=== PATIENT | male | born 1950 | race Caucasian/White ===

== ENCOUNTER 2021-08-02 03:42 | Inpatient (IN) | payer MEDICARE, OTHER ==
[~2021-08-02] VITALS: Ht 180 cm; Wt 87.2 kg
--- NOTE | 2021-08-02 04:40 | ED Cardiac General ---
History of Present Illness General Stated Complaint: CONGESTION,WEAK,NOT EATING OR DRINKING,COUGH Source: patient, family (sister and DARYN) Exam Limitations: no limitations History of Present Illness Date Seen by Provider: Aug 02, 2021 Time Seen by Provider: 04:26 Initial Comments Patient is a particularly poor historian but states for the past couple days he has had shortness of air cough productive of clear sputum and malaise weakness poor appetite. He also had an episode of loose watery stool today. He has had nausea but no vomiting. He said his roommate also has had some diarrhea for the past day or so. He says he has a known history of hypertension and atrial fibrillation but does not know what medications he takes. He recently switched to Cvent and had some medications changed but he does not know them either. He is not having chest pain or belly pain. No surgeries on his belly. No fevers or chills. He has not tried taking any medications for his symptoms. Patient sister gives a history that open ~6 months ago he was not following with a doctor and now he is on losartan, 25 mg metoprolol succinate and 325 mg aspirin. He is not on any blood thinners. He has a known history of atrial fibrillation and hypertension. Allergies and Home Medications Allergies Coded Allergies: No Known Drug Allergies (Unverified , 08/02/21) Patient Home Medication List Home Medication List Reviewed: Yes Aspirin (Aspirin EC) 325 Mg Tablet.dr, 325 MG PO DAILY, (Reported) Entered as Reported by: MELY NIELSON on 08/02/211507 Last Action: Reviewed Losartan Potassium (Losartan Potassium) 25 Mg Tablet, 25 MG PO DAILY, (Reported) Entered as Reported by: MELY NIELSON on 08/02/211507 Last Action: Reviewed Metoprolol Succinate (Metoprolol Succinate) 25 Mg Tab.er.24h, 25 MG PO DAILY, (Reported) Entered as Reported by: MELY NIELSON on 08/02/211507 Last Action: Reviewed Review of Systems Review of Systems Constitutional: No chills, No diaphoresis EENTM: No Blurred Vision, No Double Vision Respiratory: Denies Cough, Denies Shortness of Air Cardiovascular: Denies Chest Pain, Denies Lightheadedness Gastrointestinal: Denies Abdominal Pain, Denies Constipated, Denies Diarrhea, Denies Nausea Genitourinary: Denies Burning, Denies Discharge Musculoskeletal: No back pain, No muscle pain Skin: No change in color, No rash Psychiatric/Neurological: Denies Anxiety, Denies Depressed All Other Systems Reviewed Negative Unless Noted: Yes Past Zkdzilm-Pnksey-Hqkfgp Hx Patient Social History Tobacco Use?: No Use of E-Cig and/or Vaping dev: No Substance use?: No Alcohol Use?: No Physical Exam Vital Signs Vital Signs - First Documented 08/02/21 08/02/21 04:27 05:07 Temp 37.5 Pulse 102 Resp 18 B/P (MAP) 152/110 (124) Pulse Ox 93 O2 Delivery Room Air O2 Flow Rate 2.00 Capillary Refill : Height, Weight, BMI Height: '" Weight: lbs. oz. kg; BMI Method: General Appearance: WD/WN, Moderate Distress HEENT: PERRL/EOMI; No Moist Mucous Membranes Neck: Full Range of Motion, Normal Inspection Respiratory: Lungs Clear, Normal Breath Sounds, No Accessory Muscle Use, No Respiratory Distress Cardiovascular: Regular Rate, Rhythm, No Edema, Normal Peripheral Pulses Gastrointestinal: Normal Bowel Sounds, Non Tender, Soft Extremity: Normal Capillary Refill, Normal Inspection, No Pedal Edema Neurologic/Psychiatric: Alert, Oriented x3, No Motor/Sensory Deficits, Normal Mood/Affect Skin: Normal Color, Warm/Dry Progress/Results/Core Measures Results/Orders Lab Results Laboratory Tests Test 08/02/21 04:35 08/02/21 04:50 08/02/21 05:15 Range/Units Influenza Type A (RT-PCR) Not Detected Not Detecte Influenza Type B (RT-PCR) Not Detected Not Detecte SARS-CoV-2 RNA (RT-PCR) Detected H Not Detecte White Blood Count 4.7 4.3-11.0 10^3/uL Red Blood Count 6.47 H 4.30-5.52 10^6/uL Hemoglobin 18.5 H 13.3-17.7 g/dL Hematocrit 58 H 40-54 % Mean Corpuscular Volume 89 80-99 fL Mean Corpuscular Hemoglobin 29 25-34 pg Mean Corpuscular Hemoglobin Concent 32 32-36 g/dL Red Cell Distribution Width 14.6 H 10.0-14.5 % Platelet Count 158 130-400 10^3/uL Mean Platelet Volume 10.8 9.0-12.2 fL Immature Granulocyte % (Auto) 0 % Neutrophils (%) (Auto) 72 42-75 % Lymphocytes (%) (Auto) 19 12-44 % Monocytes (%) (Auto) 8 0-12 % Eosinophils (%) (Auto) 0 0-10 % Basophils (%) (Auto) 0 0-10 % Neutrophils # (Auto) 3.4 1.8-7.8 10^3/uL Lymphocytes # (Auto) 0.9 L 1.0-4.0 10^3/uL Monocytes # (Auto) 0.4 0.0-1.0 10^3/uL Eosinophils # (Auto) 0.0 0.0-0.3 10^3/uL Basophils # (Auto) 0.0 0.0-0.1 10^3/uL Immature Granulocyte # (Auto) 0.0 0.0-0.1 10^3/uL D-Dimer 1.28 H 0.00-0.49 UG/ML Sodium Level 134 L 135-145 MMOL/L Potassium Level 4.4 3.6-5.0 MMOL/L Chloride Level 98 98-107 MMOL/L Carbon Dioxide Level 21 21-32 MMOL/L Anion Gap 15 H 5-14 MMOL/L Blood Urea Nitrogen 37 H 7-18 MG/DL Creatinine 1.50 H 0.60-1.30 MG/DL Estimat Glomerular Filtration Rate 46 BUN/Creatinine Ratio 25 Glucose Level 151 H 70-105 MG/DL Calcium Level 8.6 8.5-10.1 MG/DL Corrected Calcium 8.8 8.5-10.1 MG/DL Magnesium Level 2.4 1.6-2.4 MG/DL Total Bilirubin 0.8 0.1-1.0 MG/DL Aspartate Amino Transf (AST/SGOT) 48 H 5-34 U/L Alanine Aminotransferase (ALT/SGPT) 18 0-55 U/L Alkaline Phosphatase 43 40-136 U/L Troponin I 0.028 <0.028 NG/ML C-Reactive Protein High Sensitivity 2.39 H 0.00-0.50 MG/DL Total Protein 8.1 6.4-8.2 GM/DL Albumin 3.7 3.2-4.5 GM/DL Procalcitonin 0.23 H <0.10 NG/ML Blood Gas Puncture Site RIGHT RADIAL Blood Gas Patient Temperature 99.5 Arterial Blood pH 7.36 L 7.37-7.43 Arterial Blood Partial Pressure CO2 40 35-45 MMHG Arterial Blood Partial Pressure O2 74 L 79-93 MMHG Arterial Blood HCO3 22 L 23-27 MMOL/L Arterial Blood Total CO2 22.7 21.0-31.0 MMOL/L Arterial Blood Oxygen Saturation 94 94-100 % Arterial Blood Base Excess -3.0 L -2.5-2.5 MMOL/L Gianluca Test YES-POS Blood Gas Ventilator Setting NO Blood Gas Inspired Oxygen 2L My Orders Orders - LIZZTEH GREWAL Continuous Ekg Monitoring (08/02/21 04:36) Ekg Tracing (08/02/21 04:36) Troponin I Samantha (08/02/21 04:36) Chest 1 View, Ap/Pa Only (08/02/21 04:36) Covid 19 Inhouse Test (08/02/21 04:36) Influenza A And B By Pcr (08/02/21 04:36) Cbc With Automated Diff (08/02/21 04:36) Comprehensive Metabolic Panel (08/02/21 04:36) Hs C Reactive Protein (08/02/21 04:36) Ed Iv/Invasive Line Start (08/02/21 04:37) Lactated Ringers (Lr 1000 Ml Iv Solution (08/02/21 04:45) Magnesium (08/02/21 04:37) Diltiazem Injection (Cardizem Injection) (08/02/21 04:45) Diltiazem Drip Pre-Mix (Cardizem Drip Pr (08/02/21 04:45) Ondansetron Injection (Zofran Injectio (08/02/21 04:45) Apixaban Tablet (Eliquis Tablet) (08/02/21 05:00) Ua Culture If Indicated (08/02/21 05:04) O2 (08/02/21 05:06) Arterial Blood Gas (08/02/21 05:18) Medications Given in ED Vital Signs/I&O 08/02/21 08/02/21 04:27 05:07 Temp 37.5 Pulse 102 Resp 18 B/P (MAP) 152/110 (124) Pulse Ox 93 O2 Delivery Room Air Nasal Cannula O2 Flow Rate 2.00 Progress Progress Note #1: Time: 04:50 Progress Note Patient is in atrial fibrillation with rapid ventricular response. He has a decent blood pressure of 150/110 so we will give him 20 mg of Cardizem IV followed by Cardizem drip in addition to his metoprolol and losartan. Because of his episode of loose stool today we will also swab him for Covid and influenza and get a chest x-ray for his cough and check some basic labs. He is afebrile. Other than the tachycardia has aseptic vital signs. Belly is soft nontender nonsurgical. Lungs are clear. After discussing risks, benefits and alternatives we will start him on Eliquis. [id number] score of 2 points. Progress Note #2: Time: 05:26 Progress Note ABG demonstrates metabolic acidosis with mild to moderate hypoxemia on 2 L by nasal cannula. Initial ECG Impression Date: Aug 02, 2021 Initial ECG Impression Time: 04:38 Initial ECG Rate: 123 Initial ECG Rhythm: Normal Sinus Initial ECG Intervals: Normal Initial ECG Impression: Atrial Fibrillation w/RVR Comment Atrial fibrillation with a rapid ventricular response. Diagnostic Imaging Diagonstic Imaging: Xray Plain Films/CT/US/NM/MRI: chest Comments [facility] [place], [place] NAME: ANNA AGUILAR [facility] REC#: [id number] PT STATUS: ADM Liz : 1950 PHYSICIAN: LIZZETH GREWAL MD ADMIT DATE: 08/02/21/[facility] Signed Date of Exam:08/02/21 CHEST 1 VIEW, AP/PA ONLY INDICATION: Cough, shortness of breath COMPARISON: None available. TECHNIQUE: Single frontal radiograph of the chest dated 08/02/2021 FINDINGS: The cardiac silhouette is enlarged. No significant pulmonary vascular congestion. Extensive opacities are seen throughout the left lung with additional right basilar pulmonary opacities present. No significant pleural effusion. No pneumothorax. No acute osseous abnormality. IMPRESSION: Left greater than right pulmonary opacities concerning for infection. Radiographic follow-up after appropriate therapy is recommended. Cardiomegaly. Dictated by: Dictated on workstation # [id number] Dict: 08/02/21 0600 Trans: 08/02/21 0843 AMPARO [id number] Interpreted by: JUDE SILVA MD Electronically signed by: JUDE SILVA MD 08/02/21 0843 Reviewed: Reviewed by Me Departure Communication (Admissions) Time/Spoke to Admitting Phy: 05:50 Discussed the case with Dr. Yarbrough and he agrees with cardiac consultation and Jesusita salcedo Time/Spoke to Consulting Phy: 05:47 Discussed the case with Dr. Monge and he agrees to consult on the case for cardiology. Impression Primary Impression: Atrial fibrillation with rapid ventricular response Additional Impressions: COVID-19 Acute hypoxemic respiratory failure due to COVID-19 Disposition: ADMITTED INPATIENT Condition: Stable Admissions Decision to Admit Reason: Admit from ER (General) Decision to Admit/Date: Aug 02, 2021 Time/Decision to Admit Time: 05:34 Departure-Patient Inst. Referrals: KENIA AVENDANO MD (PCP/Family) Primary Care Physician LIZZETH GREWAL Aug 02, 2021 04:40
[2021-08-02] MEDS ORDERED: ONDANSETRON 4 MG/2 ML (SDV) Z0FRAN IVP ONE (04:45)
[2021-08-02] MEDS ORDERED: LACTATED RINGERS 1,000 ML IV ONE (04:45)
[2021-08-02] MEDS ORDERED: APIXABAN 5 MG (ELIQUIS) TABLET PO ONE (05:00)
[2021-08-02] MEDS: dilTIAZem DRIP PRE-MIX 125 ML IV SCH (05:03)
[2021-08-02 05:11] LABS: BASOPHILS % (AUTO) 0 % (0-10); EOSINOPHILS % (AUTO) 0 % (0-10); HEMATOCRIT 58 % (40-54); HEMOGLOBIN 18.5 g/dL (13.3-17.7); LYMPHOCYTES # (AUTO) 0.9 10^3/uL (1.0-4.0); LYMPHOCYTES % (AUTO) 19 % (12-44); MEAN CORPUSCULAR HEMOGLOBIN 29 pg (25-34); MEAN CORPUSCULAR HGB CONC 32 g/dL (32-36); MEAN CORPUSCULAR VOLUME 89 fL (80-99); MEAN PLATELET VOLUME 10.8 fL (9.0-12.2); MONOCYTES # (AUTO) 0.4 10^3/uL (0.0-1.0); MONOCYTES % (AUTO) 8 % (0-12); NEUTROPHILS # (AUTO) 3.4 10^3/uL (1.8-7.8); NEUTROPHILS % (AUTO) 72 % (42-75); PLATELET COUNT 158 10^3/uL (130-400); WHITE BLOOD COUNT 4.7 10^3/uL (4.3-11.0)
[2021-08-02 05:21] LABS: ALBUMIN 3.7 GM/DL (3.2-4.5); POTASSIUM 4.4 MMOL/L (3.6-5.0)
[2021-08-02 05:22] LABS: CALCIUM 8.6 MG/DL (8.5-10.1)
[2021-08-02 05:23] LABS: ABG OXYGEN SATURATION 94 % (94-100); ABG PCO2 40 MMHG (35-45); ABG PH 7.36 (7.37-7.43); ABG PO2 74 MMHG (79-93); ABG TCO2 22.7 MMOL/L (21.0-31.0)
[2021-08-02 05:24] LABS: ALLENS TEST YES-POS; INSPIRED O2 2L; PATIENT TEMP 99.5; VENTILATOR NO
[2021-08-02 05:24] LABS: TOTAL PROTEIN 8.1 GM/DL (6.4-8.2)
[2021-08-02 05:25] LABS: BILIRUBIN,TOTAL 0.8 MG/DL (0.1-1.0)
[2021-08-02 05:27] LABS: CREATININE SERUM 1.5 MG/DL (0.60-1.30)
[2021-08-02 05:30] LABS: MAGNESIUM 2.4 MG/DL (1.6-2.4)
--- NOTE | 2021-08-02 06:03 | Diagnostic Imaging Report ---
INDICATION: Cough, shortness of breath COMPARISON: None available. TECHNIQUE: Single frontal radiograph of the chest dated 08/02/2021 FINDINGS: The cardiac silhouette is enlarged. No significant pulmonary vascular congestion. Extensive opacities are seen throughout the left lung with additional right basilar pulmonary opacities present. No significant pleural effusion. No pneumothorax. No acute osseous abnormality. IMPRESSION: Left greater than right pulmonary opacities concerning for infection. Radiographic follow-up after appropriate therapy is recommended. Cardiomegaly. Dictated by: Dictated on workstation # [id number]
[2021-08-02] MEDS ORDERED: ACETAMINOPHEN 325 MG TABLET PO PRN (08:15)
[2021-08-02] MEDS ORDERED: ONDANSETRON 4 MG/2 ML (SDV) Z0FRAN IVP PRN (08:15)
[2021-08-02] MEDS: LACTATED RINGERS 1,000 ML IV SCH ×2 (08:41→18:12)
[2021-08-02] MEDS: APIXABAN 5 MG (ELIQUIS) TABLET PO SCH ×2 (08:42→21:43)
[2021-08-02] MEDS ORDERED: MTP25TSR PO (15:08)
[2021-08-02] MEDS ORDERED: LOSA25TA41 PO (15:08)
[2021-08-02] MEDS ORDERED: ASPI325T32 PO (15:08)
--- NOTE | 2021-08-02 16:25 | Consultation-Cardiology ---
HPI-Cardiology Cardiology Consultation: Date of Consultation 08/02/21 Time Seen by a Provider: 16:00 Date of Admission Attending Physician Vinh Yarbrough MD Admitting Physician Jose G Sandy MD Consulting Physician DENIA PARMAR MD, MA, FACP, FACC, [facility], [facility] Physician requesting consult: Dr Hardy HPI: Chief Complaint: Shortness of breath, weakness 70 yo man admitted to the Hospitalist Service (Dr Hardy) on 08/01/21 for increasing shortness of breath and gen malaise. No cp or palp or syncope. Does report a h/o A Fib diagnosed 6 mo ago by his pcp. Denies focal weakness. Denies n/v/d. Review of Systems-Cardiology Review of Systems Constitutional: As described under HPI Eyes: No vision change Ears/Nose/Throat: No ear discharge, No nasal drainage, No recent hearing loss Respiratory: As described under HPI Cardiovascular: As described under HPI Gastrointestinal: No constipation, No diarrhea, No nausea, No vomiting Genitourinary: No dysuria, No hematuria, No urine frequency changes Musculoskeletal: No back pain, No joint pain Skin: No rash, No ulcerations Psychiatric/Neurological: No seizure, No focal weakness, No syncope Hematologic: No bleeding abnormalities All Other Systems Reviewed Negative Unless Noted: Yes EIL-Ylmven-Ytpofz Hx Patient Social History Alcohol Use?: No Past Medical History PMH As described under Assessment. Family Medical History Family Medical History: He does not report any fam h/o early CAD or SCD Allergies and Home Medications Allergies Coded Allergies: No Known Drug Allergies (Unverified , 08/02/21) Patient Home Medication List Home Medication List Reviewed: Yes Aspirin (Aspirin EC) 325 Mg Tablet.dr, 325 MG PO DAILY, (Reported) Entered as Reported by: MELY NIELSON on 08/02/211507 Last Action: Reviewed Losartan Potassium (Losartan Potassium) 25 Mg Tablet, 25 MG PO DAILY, (Reported) Entered as Reported by: MELY NIELSON on 08/02/211507 Last Action: Reviewed Metoprolol Succinate (Metoprolol Succinate) 25 Mg Tab.er.24h, 25 MG PO DAILY, (Reported) Entered as Reported by: MELY NIELSON on 08/02/21 150 Last Action: Reviewed Physical Exam-Cardiology Physical Exam Vital Signs/I&O 08/02/21 08/02/21 08/02/2108/02/21 04:27 05:07 06:53 07:17 Temp 37.5 37.5 Pulse 102 74 Resp 18 16 B/P (MAP) 152/110 (124) 110/88 Pulse Ox 93 95 O2 Delivery Room Air Nasal Cannula Nasal Cannula NIV Bilevel O2 Flow Rate 2.00 2.00 FiO2 70 08/02/21 08/02/21 08/02/21 08/02/21 07:51 08:30 11:17 12:15 Temp 36.4 35.9 Pulse 97 93 82 Resp 15 14 B/P (MAP) 151/96 129/86 Pulse Ox 94 O2 Delivery Room Air NIV Bilevel Room Air FiO2 70 08/02/21 08/02/21 08/02/21 08/02/21 12:26 12:28 15:17 15:57 Temp 35.9 37.1 Pulse 82 76 83 Resp 14 21 B/P (MAP) 129/86 139/89 Pulse Ox 94 90 O2 Delivery Room Air NIV Bilevel Room Air FiO2 70 Capillary Refill : Less Than 3 Seconds Constitutional: well-developed, well-nourished HEENT: PERRL, EOMI, hearing is well preserved Neck: carotid pulses are 2 + bilaterally, with good upstrokes Respiratory: No accessory muscle use; other (fair to good, bilateral air entry) Cardiovascular: irregularly irregular, S1 and S2, systolic murmur (soft CAMMIE at card base) Gastrointestinal: No tender; soft; No guarding, No rebound; audible bowel sounds Extremities: No clubbing, No cyanosis, No significant edema Neurologic/Psychiatric: oriented x 3, other (moves all limbs equally) Skin: No rash, No ulcerations Data Review Labs Laboratory Tests 08/02/21 04:35: Influenza Type A (RT-PCR) Not Detected, Influenza Type B (RT-PCR) Not Detected, SARS-CoV-2 RNA (RT-PCR) DetectedH 08/02/21 04:50: White Blood Count 4.7, Red Blood Count 6.47H, Hemoglobin 18.5H, Hematocrit 58H, Mean Corpuscular Volume 89, Mean Corpuscular Hemoglobin 29, Mean Corpuscular Hemoglobin Concent 32, Red Cell Distribution Width 14.6H, Platelet Count 158, Mean Platelet Volume 10.8, Immature Granulocyte % (Auto) 0, Neutrophils (%) (Auto) 72, Lymphocytes (%) (Auto) 19, Monocytes (%) (Auto) 8, Eosinophils (%) (Auto) 0, Basophils (%) (Auto) 0, Neutrophils # (Auto) 3.4, Lymphocytes # (Auto) 0.9L, Monocytes # (Auto) 0.4, Eosinophils # (Auto) 0.0, Basophils # (Auto) 0.0, Immature Granulocyte # (Auto) 0.0, D-Dimer 1.28H, Sodium Level 134L, Potassium Level 4.4, Chloride Level 98, Carbon Dioxide Level 21, Anion Gap 15H, Blood Urea Nitrogen 37H, Creatinine 1.50H, Estimat Glomerular Filtration Rate 46, BUN/Creatinine Ratio 25, Glucose Level 151H, Calcium Level 8.6, Corrected Calcium 8.8, Magnesium Level 2.4, Total Bilirubin 0.8, Aspartate Amino Transf (AST/SGOT) 48H, Alanine Aminotransferase (ALT/SGPT) 18, Alkaline Phosphatase 43, Troponin I 0.028, C-Reactive Protein High Sensitivity 2.39H, Total Protein 8.1, Albumin 3.7, Procalcitonin 0.23H 08/02/21 05:15: Blood Gas Puncture Site RIGHT RADIAL, Blood Gas Patient Temperature 99.5, Arterial Blood pH 7.36L, Arterial Blood Partial Pressure CO2 40, Arterial Blood Partial Pressure O2 74L, Arterial Blood HCO3 22L, Arterial Blood Total CO2 22.7, Arterial Blood Oxygen Saturation 94, Arterial Blood Base Excess -3.0L, Gianluca Test YES-POS, Blood Gas Ventilator Setting NO, Blood Gas Inspired Oxygen 2L 08/02/21 09:00: Laboratory Tests 08/02/21 04:50 A/P-Cardiology Assessment/Admission Diagnosis A Fib, 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 Change to oral tomorrow * Eliquis for stroke prophylaxis * Management of COVID-19, hypoxia, resp failure and polycythemia is with the Hospitalist Svce (Dr Hardy) * Monitor labs * Ok for d/c tomorrow from cardiac standpoint if heart rate controlled on oral long-acting diltiazem. Continue apixaban for stroke prophylaxis * Cardiology f/u 1-2 weeks after discharge DENIA PARMAR MD FACP [facility] Aug 02, 2021 16:25
--- NOTE | 2021-08-02 18:11 | History & Physical-Hospitalist ---
History of Present Illness HPI/Chief Complaint Emmanuel Sanches is a 70 year old male with PMH HTN, AFib, who presented with shortness of breath. He has also had a cough. He denies fevers and chills. He has been having diarrhea. He denies nausea and vomiting. He is not vaccinated against COVID-19. Source: patient Exam Limitations: no limitations Date Seen 08/02/21 Time Seen by a Provider: 09:50 Attending Physician Vinh Yarbrough MD PCP Jose G Sandy MD Referring Physician Date of Admission Aug 02, 2021 at 10:50 Home Medications & Allergies Home Medications Reviewed patient Home Medication Reconciliation performed by pharmacy medication reconciliations electrocardiographic technician and/or nursing. Patients Allergies have been reviewed. Allergies Allergies Coded Allergies No Known Drug Allergies (Vdzdtfukeb18/3/21) Past Hlyckyv-Vhsnkm-Baixqv Hx Patient Social History Tobacco Use?: No Use of E-Cig and/or Vaping dev: No Substance use?: No Alcohol Use?: No Current Status Communicates: Verbally Primary Language: Mongolian Preferred Spoken Language: Mongolian Is interpretation needed?: No Past Medical History Atrial Fibrillation, Hypertension Family Medical History No Pertinent Family Hx Review of Systems Constitutional: malaise EENTM: no symptoms reported Respiratory: cough, short of breath Cardiovascular: no symptoms reported Gastrointestinal: diarrhea Genitourinary: no symptoms reported Musculoskeletal: no symptoms reported Skin: no symptoms reported Psychiatric/Neurological: No Symptoms Reported Physical Exam Physical Exam Vital Signs Vital Signs - First Documented 08/02/21 08/02/21 08/02/21 04:27 05:07 07:17 Temp 37.5 Pulse 102 Resp 18 B/P (MAP) 152/110 (124) Pulse Ox 93 O2 Delivery Room Air O2 Flow Rate 2.00 FiO2 70 Capillary Refill : Less Than 3 Seconds Height, Weight, BMI Height: '" Weight: lbs. oz. kg; 25.00 BMI Method: General Appearance: No Apparent Distress, WD/WN HEENT: PERRL/EOMI, Pharynx Normal Neck: Normal Inspection, Supple Respiratory: Lungs Clear, Normal Breath Sounds, No Respiratory Distress Cardiovascular: No Edema, No Murmur, Irregularly Irregular Gastrointestinal: Normal Bowel Sounds, Non Tender, Soft Extremity: Normal Inspection, Non Tender, No Pedal Edema Neurologic/Psychiatric: Alert, Oriented x3, No Motor/Sensory Deficits Skin: Normal Color, Warm/Dry Results Results/Procedures Labs Laboratory Tests 08/02/21 04:50 Patient resulted labs reviewed. Imaging: Reviewed Imaging Report Assessment/Plan Admission Diagnosis Atrial fibrillation with rapid ventricular response Admission Status: Inpatient Order (span 2 midnights) Reason for Inpatient Admission: Respiratory failure due to COVID-19 Assessment and Plan AFib with RVR Cardiology consulted IV Cardizem Eliquis Acute respiratory failure due to COVID-19 Elevated d-dimer Unvaccinated Requiring minimal supplemental oxygen Started on Decadron D-dimer mildly elevated Already receiving therapeutic anticoagulation with Eliquis Procal normal, no antibiotics MARITA vs CKD Polycythemia Cr elevated, unclear baseline Hgb increased, possibly due to dehydration IV fluids DVT prophylaxis: already receiving therapeutic anticoagulation Diagnosis/Problems Diagnosis/Problems (1) Atrial fibrillation with RVR Status: Acute (2) Acute respiratory failure with hypoxia Status: Acute (3) COVID-19 Status: Acute (4) Elevated d-dimer Status: Acute (5) MARITA (acute kidney injury) Status: Acute (6) Polycythemia Status: Acute TUCKER GALLEGOS MD Aug 02, 2021 18:11
[2021-08-03] MEDS: LACTATED RINGERS 1,000 ML IV SCH ×3 (02:12→21:16)
[2021-08-03] MEDS: dilTIAZem DRIP PRE-MIX 125 ML IV SCH (02:12)
[2021-08-03 05:56] LABS: EOSINOPHILS % (AUTO) 0 % (0-10)
[2021-08-03 05:58] LABS: BASOPHILS % (AUTO) 0 % (0-10); HEMATOCRIT 50 % (40-54); HEMOGLOBIN 16.4 g/dL (13.3-17.7); LYMPHOCYTES # (AUTO) 0.8 10^3/uL (1.0-4.0); LYMPHOCYTES % (AUTO) 27 % (12-44); MEAN CORPUSCULAR HEMOGLOBIN 29 pg (25-34); MEAN CORPUSCULAR HGB CONC 33 g/dL (32-36); MEAN CORPUSCULAR VOLUME 88 fL (80-99); MEAN PLATELET VOLUME 10.6 fL (9.0-12.2); MONOCYTES # (AUTO) 0.4 10^3/uL (0.0-1.0); MONOCYTES % (AUTO) 13 % (0-12); NEUTROPHILS # (AUTO) 1.9 10^3/uL (1.8-7.8); NEUTROPHILS % (AUTO) 60 % (42-75); PLATELET COUNT 120 10^3/uL (130-400); WHITE BLOOD COUNT 3.1 10^3/uL (4.3-11.0)
[2021-08-03 06:28] LABS: POTASSIUM 4.7 MMOL/L (3.6-5.0)
[2021-08-03 06:30] LABS: CALCIUM 8.6 MG/DL (8.5-10.1)
[2021-08-03 06:34] LABS: CREATININE SERUM 0.89 MG/DL (0.60-1.30)
[2021-08-03 06:36] LABS: MAGNESIUM 2.2 MG/DL (1.6-2.4)
[2021-08-03] MEDS: APIXABAN 5 MG (ELIQUIS) TABLET PO SCH ×2 (08:49→21:16)
--- NOTE | 2021-08-03 11:21 | Progress Note - Hospitalist ---
Subjective HPI/CC On Admission Date Seen by Provider: Aug 03, 2021 Time Seen by Provider: 10:50 Emmanuel Sanches is a 70 year old male with PMH HTN, AFib, who presented with shortness of breath. He has also had a cough. He denies fevers and chills. He has been having diarrhea. He denies nausea and vomiting. He is not vaccinated against COVID-19. Subjective/Events-last exam He is feeling ok today. He is not short of breath. He is having cough. He has a good appetite. He ate breakfast. He is not having fevers. Objective Exam Vital Signs Vital Signs Date Time Temp Pulse Resp B/P (MAP) Pulse Ox O2 Delivery O2 Flow Rate FiO2 08/03/21 08:00 36.0 73 20 140/99 94 Nasal Cannula 5.00 08/02/21 15:17 70 Capillary Refill : Less Than 3 Seconds General Appearance: No Apparent Distress, WD/WN Respiratory: Lungs Clear, Normal Breath Sounds, No Respiratory Distress Cardiovascular: No Edema, No Murmur, Irregularly Irregular Gastrointestinal: Normal Bowel Sounds, Non Tender, Soft Extremity: Normal Inspection, Non Tender, No Pedal Edema Neurologic/Psychiatric: Alert, Oriented x3, No Motor/Sensory Deficits, Normal Mood/Affect Skin: Normal Color, Warm/Dry Results/Procedures Lab Laboratory Tests 08/03/21 05:40 Patient resulted labs reviewed. Imaging: Reviewed Imaging Report Assessment/Plan Assessment and Plan Assess & Plan/Chief Complaint Acute respiratory failure due to COVID-19 Elevated d-dimer Lymphopenia associated with COVID-19 Unvaccinated Requiring increased supplemental oxygen, 5 L Continue Decadron D-dimer mildly elevated, repeat tomorrow Already receiving therapeutic anticoagulation with Eliquis Procal normal, repeat tomorrow AFib with RVR Cardiology consulted Transitioned to oral Cardizem Eliquis MARITA Cr improved IV fluids DVT prophylaxis: already receiving therapeutic anticoagulation Diagnosis/Problems Diagnosis/Problems (1) Acute respiratory failure with hypoxia Status: Acute (2) COVID-19 Status: Acute (3) Elevated d-dimer Status: Acute (4) Lymphopenia associated with COVID-19 Status: Acute (5) Atrial fibrillation with RVR Status: Acute (6) MARITA (acute kidney injury) Status: Acute TUCKER GALLEGOS MD Aug 03, 2021 11:21
--- NOTE | 2021-08-03 12:48 | Progress Note - Cardiology ---
Cardiology SOAP Progress Note Subjective: Shortness of breath better but not resolved No cp No palp or syncope Gen malaise present No n/v/d No swelling Objective: I&O/Vital Signs 08/03/21 08/03/21 08/03/21 08/03/21 01:00 03:17 04:00 07:00 Temp 36.3 Pulse 66 61 Resp 10 B/P (MAP) 132/88 Pulse Ox 92 O2 Delivery Nasal Cannula Nasal Cannula Nasal Cannula O2 Flow Rate 5.00 5.00 5.00 08/03/21 08/03/21 08/03/21 08/03/21 07:00 08:00 12:00 12:11 Temp 36.0 36.8 Pulse 62 73 77 Resp 20 14 B/P (MAP) 140/99 145/97 Pulse Ox 94 93 O2 Delivery Nasal Cannula Nasal Cannula Nasal Cannula O2 Flow Rate 5.00 5.00 5.00 08/03/21 12:42 O2 Delivery Nasal Cannula O2 Flow Rate 5.00 08/03/21 00:00 Intake Total 1380 ml Balance 1380 ml Constitutional: well-developed, well-nourished Respiratory: No accessory muscle use; other (fair to good, bilateral air entry) Cardiovascular: irregularly irregular, S1 and S2, systolic murmur (soft CAMMIE at card base) Gastrointestional: No tender; soft; No guarding, No rebound; audible bowel sounds Extremities: No clubbing, No cyanosis, No significant edema Neurologic/Psychiatric: oriented x 3, other (moves all limbs equally) Skin: No rash, No ulcerations Results/Procedures: Labs Laboratory Tests 08/03/21 05:40: White Blood Count 3.1L, Red Blood Count 5.70H, Hemoglobin 16.4, Hematocrit 50, Mean Corpuscular Volume 88, Mean Corpuscular Hemoglobin 29, Mean Corpuscular Hemoglobin Concent 33, Red Cell Distribution Width 14.2, Platelet Count 120L, Mean Platelet Volume 10.6, Immature Granulocyte % (Auto) 0, Neutrophils (%) (Auto) 60, Lymphocytes (%) (Auto) 27, Monocytes (%) (Auto) 13H, Eosinophils (%) (Auto) 0, Basophils (%) (Auto) 0, Neutrophils # (Auto) 1.9, Lymphocytes # (Auto) 0.8L, Monocytes # (Auto) 0.4, Eosinophils # (Auto) 0.0, Basophils # (Auto) 0.0, Immature Granulocyte # (Auto) 0.0, Percent Immature Platelet Fraction 6.5, Sodi um Level 135, Potassium Level 4.7, Chloride Level 103, Carbon Dioxide Level 24, Anion Gap 8, Blood Urea Nitrogen 24H, Creatinine 0.89, Estimat Glomerular Filtration Rate 84, BUN/Creatinine Ratio 27, Glucose Level 133H, Calcium Level 8.6, Magnesium Level 2.2, Thyroid Stimulating Hormone (TSH) 0.60 Laboratory Tests 08/02/21 04:50 08/03/21 05:40 A/P: Assessment: A Fib, probably chronic persistent COVID-19 pneumonia and hypoxia at presentation on 08/02/21 Polycythemia of undetermined etiology and duration, managed by the [facility] Ad renal insuff, likely due to volume depletion, resolved with hydration Plan: * Dilt changed to oral * Eliquis for stroke prophylaxis * Monitor labs * I discussed his case with DENIA Moses MD FACP [facility]S Aug 03, 2021 12:48
[2021-08-03 17:18] VITALS: BP 105/76
[2021-08-03] MEDS ORDERED: RT-ALBUTEROL HFA 8.5 GM INHALER IH PRN (17:45)
[2021-08-03] MEDS: NYSTATIN CREAM (MYCOSTATIN) 30 GM TUBE TP SCH (21:30)
[2021-08-03] MEDS: RT-ALBUTEROL HFA 8.5 GM INHALER IH SCH ×2 (23:04→23:18)
[2021-08-04] MEDS: RT-ALBUTEROL HFA 8.5 GM INHALER IH SCH ×6 (02:14→21:41)
[2021-08-04] MEDS: dilTIAZem DRIP PRE-MIX 125 ML IV SCH (05:43)
[2021-08-04] MEDS: LACTATED RINGERS 1,000 ML IV SCH ×2 (05:43→15:01)
[2021-08-04 05:56] LABS: BASOPHILS % (AUTO) 0 % (0-10); EOSINOPHILS % (AUTO) 0 % (0-10); HEMATOCRIT 48 % (40-54); HEMOGLOBIN 15.6 g/dL (13.3-17.7); LYMPHOCYTES # (AUTO) 0.4 10^3/uL (1.0-4.0); LYMPHOCYTES % (AUTO) 7 % (12-44); MEAN CORPUSCULAR HEMOGLOBIN 29 pg (25-34); MEAN CORPUSCULAR HGB CONC 32 g/dL (32-36); MEAN CORPUSCULAR VOLUME 89 fL (80-99); MEAN PLATELET VOLUME 10.9 fL (9.0-12.2); MONOCYTES # (AUTO) 0.5 10^3/uL (0.0-1.0); MONOCYTES % (AUTO) 10 % (0-12); NEUTROPHILS # (AUTO) 4.7 10^3/uL (1.8-7.8); NEUTROPHILS % (AUTO) 83 % (42-75); PLATELET COUNT 146 10^3/uL (130-400); WHITE BLOOD COUNT 5.7 10^3/uL (4.3-11.0)
[2021-08-04 06:01] LABS: POTASSIUM 4.2 MMOL/L (3.6-5.0)
[2021-08-04 06:02] LABS: CALCIUM 8.3 MG/DL (8.5-10.1)
[2021-08-04 06:07] LABS: CREATININE SERUM 0.83 MG/DL (0.60-1.30)
[2021-08-04] MEDS: APIXABAN 5 MG (ELIQUIS) TABLET PO SCH ×2 (11:24→18:42)
[2021-08-04] MEDS: NYSTATIN CREAM (MYCOSTATIN) 30 GM TUBE TP SCH ×3 (14:59→20:49)
--- NOTE | 2021-08-04 15:20 | Progress Note - Cardiology ---
Cardiology SOAP Progress Note Subjective: He has had gross hematuria Has not been reporting any symptoms of shortness of breath or cp or palp or syncope to his care providers Objective: I&O/Vital Signs 08/04/21 08/04/21 08/04/21 08/04/21 03:17 04:00 07:00 07:54 Temp 36.0 36.1 Pulse 72 71 66 Resp 14 16 B/P (MAP) 121/77 135/87 Pulse Ox 91 92 O2 Delivery Nasal Cannula Nasal Cannula Nasal Cannula O2 Flow Rate 5.00 5.00 5.00 08/04/21 08/04/21 08/04/21 08:16 11:48 15:10 Temp 36.5 Pulse 80 Resp 18 B/P (MAP) 148/88 Pulse Ox 92 91 92 O2 Delivery Nasal Cannula Nasal Cannula Nasal Cannula O2 Flow Rate 5.00 5.00 5.00 08/04/21 00:00 Intake Total 1390 ml Output Total 975 ml Balance 415 ml Constitutional: other (To reduce COVID exposure to his care-providing team, I did not go into his room today, but did communicate with his nurses, and reviewed his VS and his labs) Results/Procedures: Labs Laboratory Tests 08/04/21 05:40: White Blood Count 5.7, Red Blood Count 5.44, Hemoglobin 15.6, Hematocrit 48, Mean Corpuscular Volume 89, Mean Corpuscular Hemoglobin 29, Mean Corpuscular Hemoglobin Concent 32, Red Cell Distribution Width 14.4, Platelet Count 146, Mean Platelet Volume 10.9, Immature Granulocyte % (Auto) 0, Neutrophils (%) (Auto) 83H, Lymphocytes (%) (Auto) 7L, Monocytes (%) (Auto) 10, Eosinophils (%) (Auto) 0, Basophils (%) (Auto) 0, Neutrophils # (Auto) 4.7, Lymphocytes # (Auto) 0.4L, Monocytes # (Auto) 0.5, Eosinophils # (Auto) 0.0, Basophils # (Auto) 0.0, Immature Granulocyte # (Auto) 0.0, D-Dimer 0.32, Sodium Level 137, Potassium Level 4.2, Chloride Level 103, Carbon Dioxide Level 22, Anion Gap 12, Blood Urea Nitrogen 20H, Creatinine 0.83, Estimat Glomerular Filtration Rate 91, BUN/Creatinine Ratio 24, Glucose Level 141H, Calcium Level 8.3L, Procalcitonin 0.10H Laboratory Tests 08/03/21 05:40 08/04/21 05:40 A/P: Assessment: Hematuria, managed by the [facility] sv[facility] (Dr Hardy) A Fib, probably chronic persistent COVID-19 pneumonia and hypoxia at presentation on 08/02/21 Ad renal insuff, likely due to volume depletion, resolved with hydration Plan: * May hold Eliquis while he has hematuria * We recommend Urology consult so that the source of hematuria can be identified and treated and then Eliquis resumed * Monitor labs DENIA PARMAR MD FACP [facility] Aug 04, 2021 15:20
--- NOTE | 2021-08-04 17:55 | Progress Note - Hospitalist ---
Subjective HPI/CC On Admission Date Seen by Provider: Aug 04, 2021 Time Seen by Provider: 11:30 Emmanuel Sanches is a 70 year old male with PMH HTN, AFib, who presented with shortness of breath. He has also had a cough. He denies fevers and chills. He has been having diarrhea. He denies nausea and vomiting. He is not vaccinated against COVID-19. Subjective/Events-last exam He had some gross hematuria earlier. His urine is clear now. He denies pain. He is not short of breath. Objective Exam Vital Signs Vital Signs Date Time Temp Pulse Resp B/P (MAP) Pulse Ox O2 Delivery O2 Flow Rate FiO2 08/04/21 16:10 Nasal Cannula 5.00 08/04/21 16:00 36.7 70 16 133/96 93 08/02/21 15:17 70 Capillary Refill : Less Than 3 Seconds General Appearance: No Apparent Distress, WD/WN Respiratory: Lungs Clear, Normal Breath Sounds, No Respiratory Distress Cardiovascular: Regular Rate, Rhythm, No Edema, No Murmur Gastrointestinal: Normal Bowel Sounds, Non Tender, Soft Neurologic/Psychiatric: Alert, Oriented x3, No Motor/Sensory Deficits, Normal Mood/Affect Skin: Normal Color, Warm/Dry Results/Procedures Lab Laboratory Tests 08/04/21 05:40 Patient resulted labs reviewed. Imaging: Reviewed Imaging Report Assessment/Plan Assessment and Plan Assess & Plan/Chief Complaint Acute respiratory failure due to COVID-19 Elevated d-dimer Unvaccinated Requiring supplemental oxygen, 5 L, stable Continue Decadron AFib with RVR Cardiology following Continue Cardizem Eliquis held due to hematuria Hematuria Hold Eliquis Appears to be resolved Urology unavailable Monitor DVT prophylaxis: already receiving therapeutic anticoagulation Lymphopenia associated with COVID-19 resolved MARITA, resolved Diagnosis/Problems Diagnosis/Problems (1) Acute respiratory failure with hypoxia Status: Acute (2) COVID-19 Status: Acute (3) Elevated d-dimer Status: Acute (4) Lymphopenia associated with COVID-19 Status: Acute (5) Atrial fibrillation with RVR Status: Acute (6) MARITA (acute kidney injury) Status: Acute TUCKER GALLEGOS MD Aug 04, 2021 17:55
[2021-08-05 00:59] LABS: BILIRUBIN,URINE NEGATIVE (NEGATIVE); CLARITY,URINE CLEAR; COLOR,URINE YELLOW; GLUCOSE, URINE (UA) NEGATIVE (NEGATIVE); KETONES,URINE NEGATIVE (NEGATIVE); LEUKOCYTE ESTERASE ,URINE NEGATIVE (NEGATIVE); NITRITE,URINE NEGATIVE (NEGATIVE); PROTEIN,URINE NEGATIVE (NEGATIVE)
[2021-08-05 01:12] LABS: BACTERIA,URINE NEGATIVE /HPF
[2021-08-05] MEDS: RT-ALBUTEROL HFA 8.5 GM INHALER IH SCH ×6 (02:42→22:21)
[2021-08-05] MEDS: dilTIAZem DRIP PRE-MIX 125 ML IV SCH (05:12)
[2021-08-05] MEDS: LACTATED RINGERS 1,000 ML IV SCH ×2 (06:34→17:16)
[2021-08-05 06:42] LABS: CALCIUM 8.6 MG/DL (8.5-10.1)
[2021-08-05 06:46] LABS: CREATININE SERUM 0.75 MG/DL (0.60-1.30)
[2021-08-05] MEDS: APIXABAN 5 MG (ELIQUIS) TABLET PO SCH ×2 (08:34→20:32)
[2021-08-05] MEDS: NYSTATIN CREAM (MYCOSTATIN) 30 GM TUBE TP SCH ×3 (08:34→20:32)
[2021-08-05] MEDS: hydrALAZINE (APESOLINE) 20 MG/ML VIAL IV PRN (08:39)
[2021-08-05] MEDS ORDERED: dilTIAZem120 MG (CARDIZEM CD) CAP PO NR (09:34)
[2021-08-05] MEDS ORDERED: LOSARTAN 50 MG (COZAAR) TAB PO NR (09:34)
[2021-08-05] MEDS ORDERED: TOCILIZUMAB INJECTION (NON-FOR 400 MG, TOCILIZUMAB INJECTION 200 MG in NS (IVPB) 70 ML IV ONE (12:30)
--- NOTE | 2021-08-05 12:57 | Progress Note - Cardiology ---
Cardiology SOAP Progress Note Subjective: Worsening shortness of breath and worsening cough (non-productive) No cp or palp or syncope No n/v/d Gen malaise and weakness present Objective: I&O/Vital Signs 08/05/21 08/05/21 08/05/21 08/05/21 02:43 02:53 04:00 07:00 Temp 36.7 Pulse 86 92 107 Resp 18 B/P (MAP) 153/101 Pulse Ox 97 89 O2 Delivery Nasal Cannula High Flow N/C O2 Flow Rate 6.00 10.00 08/05/21 08/05/21 08/05/21 08/05/21 07:00 08:49 09:00 10:09 Pulse 81 Resp 16 B/P (MAP) 195/146 Pulse Ox 97 90 88 90 O2 Delivery Nasal Cannula Nasal Cannula High Flow N/C Nasal Cannula O2 Flow Rate 10.00 10.00 10.00 10.00 08/05/21 08/05/21 12:17 12:21 Pulse 101 Pulse Ox 95 O2 Delivery Vapotherm O2 Flow Rate 30.00 FiO2 80 08/04/21 23:59 Intake Total 1260 ml Output Total 1050 ml Balance 210 ml Constitutional: AAO x 3, well-developed, well-nourished Respiratory: No accessory muscle use; other (fair to good, bilateral air entry, diminished at the bases) Cardiovascular: irregularly irregular, S1 and S2, systolic murmur (soft CAMMIE at card base) Gastrointestional: No tender; soft; No guarding, No rebound; audible bowel sounds Extremities: No clubbing, No cyanosis, No significant edema Neurologic/Psychiatric: oriented x 3, other (moves all limbs equally) Skin: No rash on exposed areas, No ulcerations on exposed areas Results/Procedures: Labs Laboratory Tests 08/04/21 22:35: Urine Color YELLOW, Urine Clarity CLEAR, Urine pH 6.0, Urine Specific [place] 1.015L, Urine Protein NEGATIVE, Urine Glucose (UA) NEGATIVE, Urine Ketones NEGATIVE, Urine Nitrite NEGATIVE, Urine Bilirubin NEGATIVE, Urine Urobilinogen 0.2, Urine Leukocyte Esterase NEGATIVE, Urine RBC (Auto) 3+H, Urine RBC 10-25H, Urine WBC NONE, Urine Crystals NONE, Urine Bacteria NEGATIVE, Urine Casts NONE, Urine Mucus NEGATIVE, Urine Culture Indicated NO 12/6/21 05:55: Sodium Level 140, Potassium Level 4.0, Chloride Level 104, Carbon Dioxide Level 26, Anion Gap 10, Blood Urea Nitrogen 13, Creatinine 0.75, Estimat Glomerular Filtration Rate 102, BUN/Creatinine Ratio 17, Glucose Level 121H, Calcium Level 8.6 Laboratory Tests 08/04/21 05:40 08/05/21 05:55 A/P: Assessment: COVID-19 pneumonia and hypoxia at presentation on 08/02/21 - worsening resp status A Fib, probably chronic persistent - rate under fair control - OAC held due to david hematuria (being managed by the Hospitalist maría) resumed on 08/05/21 Hypertension, not well controlled Acute renal insuff, likely due to volume depletion, resolved with hydration Plan: * Worsening clinical status, prognosis guarded * Add home regimen of ARB and beta-mahad to current regimen, for better bp and heart rate control. Continue long-acting dilt * Monitor labs DENIA PARMAR MD FACP [facility]S Aug 05, 2021 12:57
--- NOTE | 2021-08-05 15:52 | Tele-ICU Consult ---
History of Present Illness History of Present Illness Date Seen by Provider: Aug 05, 2021 Time Seen by Provider: 15:01 Date of Admission Allergies and Home Medications Allergies Coded Allergies: No Known Drug Allergies (Unverified , 08/02/21) Home Medications Aspirin 325 Mg Tablet.dr, 325 MG PO DAILY, (Reported) Losartan Potassium 25 Mg Tablet, 25 MG PO DAILY, (Reported) Metoprolol Succinate 25 Mg Tab.er.24h, 25 MG PO DAILY, (Reported) Past Medical/Social/Family Hx Patient Social History Tobacco Use?: No Use of E-Cig and/or Vaping dev: No Substance use?: No Alcohol Use?: No Immunizations Up To Date Influenza Vaccine Up-to-Date: No; Not Current Current Status Communicates: Verbally Primary Language: [place] Citizen Preferred Spoken Language: [place] Citizen Is interpretation needed?: No Review of Systems Constitutional: see HPI Sepsis Event Evaluation Height, Weight, BMI Height: '" Weight: lbs. oz. kg; 25.00 BMI Method: Exam Exam Patient acknowledged, consented, and participated in this virtual visit which was conducted using real time audio/video Vital Signs Date Time Temp Pulse Resp B/P (MAP) Pulse Ox O2 Delivery O2 Flow Rate FiO2 08/05/21 14:52 94 Vapotherm 30.00 80 08/05/21 13:17 36.9 08/05/21 12:21 95 Vapotherm 30.00 80 08/05/21 12:17 101 08/05/21 10:09 90 Nasal Cannula 10.00 08/05/21 09:00 88 High Flow N/C 10.00 08/05/21 08:49 81 16 195/146 90 Nasal Cannula 10.00 08/05/21 07:00 97 Nasal Cannula 10.00 08/05/21 07:00 107 08/05/21 04:00 36.7 92 18 153/101 89 High Flow N/C 10.00 08/05/21 02:53 86 08/05/21 02:43 97 Nasal Cannula 6.00 08/05/21 00:00 36.4 82 22 143/113 95 High Flow N/C 10.00 08/04/21 21:42 93 Nasal Cannula 6.00 08/04/21 20:00 92 High Flow N/C 6.00 08/04/21 20:00 36.7 80 17 163/97 91 Nasal Cannula 5.00 08/04/21 19:11 92 Nasal Cannula 5.00 08/04/21 19:00 73 08/04/21 16:10 Nasal Cannula 5.00 08/04/21 16:00 36.7 70 16 133/96 93 Nasal Cannula 5.00 I & O 08/05/21 07:00 Intake Total 2700 ml Output Total 2250 ml Balance 450 ml Height & Weight Height: '" Weight: lbs. oz. kg; 25.00 BMI Method: General Appearance: No Apparent Distress, WD/WN HEENT: PERRL/EOMI; No Moist Mucous Membranes Neck: Full Range of Motion, Normal Inspection Respiratory: Lungs Clear, Normal Breath Sounds, No Respiratory Distress Cardiovascular: Regular Rate, Rhythm, No Edema, No Murmur Capillary Refill: Less Than 3 Seconds Extremity: Normal Inspection, Non Tender, No Pedal Edema Neurologic/Psychiatric: Alert, Oriented x3, No Motor/Sensory Deficits, Normal Mood/Affect Skin: Normal Color, Warm/Dry Results Lab Laboratory Tests 08/04/21 05:40 08/05/21 05:55 Assessment/Plan Assessment/Plan (Tele-ICU Physician , consultation) Available chart/ vitals / labs / Images reviewed H&P is from ER notes Patient's information available about PMH, Shx, Fhx allergy reviewed in EMR. ROS as per chart and RN report Now in ICU, hemodynamically stable Video assessment done using teleICU camera, rest of exam as per RN Discussed with RN. Consultants: colleen Hospital course: 08/02 - SOB , Afib RVR, + covid 08/05 - to ICU - hypoxix - VT 30 L 80% A/P AHRF / ARDS due to severe COVID19 - worsening - ? VO with fluis resuscitation vs bact PNA vs ARDS with COvid - will check PCT , BNP and cxr - VT 30 L 80% -prone position if able - conservative fluid strategy (aim for even or negative fluid balance [id number]-7/COVID-19 PNA ( DX 08/02 unvaccinted -Dexamethasone 08/02 -Hypercoagulable state , Eliquis on hold due to hematuria - resumed 08/05 Monitor for superimposed bact PNA -PCT negative on admission , OFF abx - recheck 08/06 A Fib, probably chronic persistent - rate controled - cards follow - OAC held due to david hematuria - resumed on 08/05/21 hyperglycemia - ISS , close f/up on steroids MARITA on presentation - improved with hydration Hematuria -resolved , resumed Eliquis 08/05 -Urology unavailable Lines : periph (Central Line Necessity Reviewed) [place]: OG: Nutrition: po Analgesia: Anxiety/ delirium VTE Prophylaxis: eliquis Stress Ulcer Prophylaxis: po Plans in collaboration with bedside consultants and IM MDs. Discussed with RN to reach out if any questions or concerns A total of 35 minutes of critical care time was devoted to this patient today, required to treat and/or prevent further deterioration of critical care condition ( as above DAMIÁN JONES MD Aug 05, 2021 15:52
--- NOTE | 2021-08-05 18:43 | Progress Note - Hospitalist ---
Subjective HPI/CC On Admission Date Seen by Provider: Aug 05, 2021 Time Seen by Provider: 09:15 Emmanuel Sanches is a 70 year old male with PMH HTN, AFib, who presented with shortness of breath. He has also had a cough. He denies fevers and chills. He has been having diarrhea. He denies nausea and vomiting. He is not vaccinated against COVID-19. Subjective/Events-last exam He is feeling about the same. He has not had any more hematuria. His oxygen requirement has increased. He is agreeable to Actemra if this continues to worsen. Objective Exam Vital Signs Vital Signs Date Time Temp Pulse Resp B/P (MAP) Pulse Ox O2 Delivery O2 Flow Rate FiO2 08/05/21 18:00 146/101 08/05/21 16:49 88 Vapotherm 30.00 80 08/05/21 16:15 36.0 08/05/21 12:17 101 08/05/21 08:49 16 Capillary Refill : Less Than 3 Seconds General Appearance: No Apparent Distress, WD/WN Respiratory: Lungs Clear, Normal Breath Sounds, No Respiratory Distress Cardiovascular: No Murmur, Irregularly Irregular, Tachycardia Gastrointestinal: Normal Bowel Sounds, Non Tender, Soft Extremity: Normal Inspection, Non Tender, No Pedal Edema Neurologic/Psychiatric: Alert, Oriented x3, No Motor/Sensory Deficits, Normal Mood/Affect Skin: Normal Color, Warm/Dry Results/Procedures Lab Laboratory Tests 08/05/21 05:55 Patient resulted labs reviewed. Imaging: Reviewed Imaging Report Assessment/Plan Assessment and Plan Assess & Plan/Chief Complaint Acute respiratory failure due to COVID-19 Elevated d-dimer Unvaccinated Oxygen requirement increasing, now on Vapotherm Transfer to ICU Continue Decadron Actemra ordereed, risks/benefits/EUA use discussed and patient agrees Consult TeleICU Procalcitonin within normal limits, antibiotics not indicated Already receiving therapeutic anticoagulation with Eliquis AFib with RVR Hypertension Cardiology following HR and BP remains elevated Increase Cardizem Eliquis held due to hematuria Add Losartan and Metoprolol Hematuria Resolved DVT prophylaxis: already receiving therapeutic anticoagulation Lymphopenia associated with COVID-19 resolved MARITA, resolved Critical Care Critically Ill Patient Diagnosis/Problems Diagnosis/Problems (1) Acute respiratory failure with hypoxia Status: Acute (2) COVID-19 Status: Acute (3) Elevated d-dimer Status: Acute (4) Lymphopenia associated with COVID-19 Status: Acute (5) Atrial fibrillation with RVR Status: Acute (6) MARITA (acute kidney injury) Status: Acute (7) HTN (hypertension) Status: Acute Qualifiers: Hypertension type: primary hypertension Qualified Codes: I10 - Essential (primary) hypertension TUCKER GALLEGOS MD Aug 05, 2021 18:43
[2021-08-06] MEDS: RT-ALBUTEROL HFA 8.5 GM INHALER IH SCH ×6 (02:49→22:35)
[2021-08-06] MEDS: LACTATED RINGERS 1,000 ML IV SCH (03:28)
[2021-08-06 04:57] LABS: POTASSIUM 3.9 MMOL/L (3.6-5.0)
[2021-08-06 04:59] LABS: CALCIUM 8.8 MG/DL (8.5-10.1)
[2021-08-06 05:03] LABS: CREATININE SERUM 0.77 MG/DL (0.60-1.30); PHOSPHORUS 1.8 MG/DL (2.3-4.7)
[2021-08-06 05:05] LABS: MAGNESIUM 1.9 MG/DL (1.6-2.4)
--- NOTE | 2021-08-06 07:07 | Diagnostic Imaging Report ---
Portable erect AP chest at 404 hours. INDICATION: Respiratory distress. FINDINGS: The heart is enlarged but does seem less prominent than noted on the prior exam of 08/02/2021. However, the alveolar/interstitial infiltrates involving both lung seen previously have increased considerably. The right lung is more severely affected. This appearance does suggest worsening pneumonia/atelectasis and/or pulmonary edema. There is no significant pleural effusion defied but there may be some fluid in the left lung base. The mediastinum is not widened. The osseous structures are intact. IMPRESSION: The appearance of the chest has worsened since the prior study as there is greater involvement of both lungs by alveolar/interstitial pulmonary infiltrates. This may be related to pneumonia/atelectasis, or pulmonary edema or a combination of all three. Dictated by: Dictated on workstation # [id number]
[2021-08-06] MEDS: POTASSIUM CL 10MEQ/50ML IVPB 50 ML IV SCH (08:38)
[2021-08-06] MEDS: MAGNESIUM 1 GM/100 ML IVPB 100 ML IV SCH (08:38)
[2021-08-06] MEDS: KCL 20 MEQ TAB (K-DUR) PO SCH (08:39)
[2021-08-06] MEDS: APIXABAN 5 MG (ELIQUIS) TABLET PO SCH ×2 (08:40→20:52)
[2021-08-06] MEDS ORDERED: LOSARTAN 50 MG (COZAAR) TAB PO SCH (09:00)
--- NOTE | 2021-08-06 10:23 | Tele-ICU Progress Note ---
Subjective Date Seen by a Provider: Aug 06, 2021 Time Seen by a Provider: 10:23 Sepsis Event Evaluation Height, Weight, BMI Height: '" Weight: lbs. oz. kg; 25.00 BMI Method: Exam Exam Patient acknowledged, consented, and participated in this virtual visit which was conducted using real time audio/video Vital Signs Date Time Temp Pulse Resp B/P (MAP) Pulse Ox O2 Delivery O2 Flow Rate FiO2 08/06/21 09:15 91 22 86 Vapotherm 30.00 70.00 08/06/21 09:00 85 25 165/104 90 Vapotherm 30.00 70.00 08/06/21 08:46 Vapotherm 30.00 70.00 08/06/21 08:45 95 23 93 08/06/21 08:32 36.6 08/06/21 08:15 95 20 92 Vapotherm 30.00 70.00 08/06/21 08:00 157/104 08/06/21 07:45 101 20 91 Vapotherm 30.00 70.00 08/06/21 07:39 30.00 70 08/06/21 07:33 93 Vapotherm 30.00 80 08/06/21 07:30 89 15 94 Vapotherm 30.00 70.00 08/06/21 07:15 82 16 94 Vapotherm 30.00 70.00 08/06/21 07:00 82 19 166/106 95 Vapotherm 30.00 70.00 08/06/21 07:00 100 08/06/21 06:00 84 19 159/103 90 Vapotherm 30.00 80.00 08/06/21 05:00 90 22 160/109 92 Vapotherm 30.00 80.00 08/06/21 04:00 85 16 168/108 94 Vapotherm 30.00 80.00 08/06/21 04:00 88 Vapotherm 30.00 80 08/06/21 03:00 93 21 152/85 91 Vapotherm 30.00 80.00 08/06/21 02:50 91 Vapotherm 30.00 80 08/06/21 02:00 72 9 139/124 92 Vapotherm 30.00 80.00 08/06/21 01:00 89 08/06/21 01:00 89 18 158/104 92 Vapotherm 30.00 80.00 08/06/21 00:00 37.0 08/06/21 00:00 85 20 148/95 90 Vapotherm 30.00 80.00 08/06/21 00:00 88 Vapotherm 30.00 80 08/05/21 23:00 84 20 141/101 94 Vapotherm 30.00 80.00 08/05/21 22:22 93 Vapotherm 30.00 80 08/05/21 22:00 68 20 136/94 93 Vapotherm 30.00 80.00 08/05/21 21:00 70 14 137/88 96 Vapotherm 30.00 80.00 08/05/21 20:00 88 Vapotherm 30.00 80 08/05/21 20:00 73 18 122/79 95 Vapotherm 30.00 80.00 08/05/21 19:40 36.2 Vapotherm 30.00 80.00 08/05/21 19:00 94 08/05/21 19:00 80 19 150/92 98 Vapotherm 30.00 80.00 08/05/21 18:38 97 Vapotherm 30.00 80 08/05/21 18:00 146/101 08/05/21 17:00 135/91 08/05/21 16:49 88 Vapotherm 30.00 80 08/05/21 16:15 36.0 Vapotherm 30.00 80.00 08/05/21 16:00 137/88 08/05/21 15:00 126/90 08/05/21 14:52 94 Vapotherm 30.00 80 08/05/21 13:17 36.9 08/05/21 12:35 88 Vapotherm 30.00 80 08/05/21 12:21 95 Vapotherm 30.00 80 08/05/21 12:17 101 I & O 08/06/21 07:00 Intake Total 2620 ml Output Total 1135 ml Balance 1485 ml Height & Weight Height: '" Weight: lbs. oz. kg; 25.00 BMI Method: General Appearance: No Apparent Distress, WD/WN HEENT: PERRL/EOMI; No Moist Mucous Membranes Neck: Full Range of Motion, Normal Inspection Respiratory: Lungs Clear, Normal Breath Sounds, No Respiratory Distress Cardiovascular: No Murmur, Irregularly Irregular, Tachycardia Capillary Refill: Less Than 3 Seconds Extremity: Normal Inspection, Non Tender, No Pedal Edema Neurologic/Psychiatric: Alert, Oriented x3, No Motor/Sensory Deficits, Normal Mood/Affect Skin: Normal Color, Warm/Dry Results Lab Laboratory Tests 08/05/21 05:55 08/06/21 04:25 Assessment/Plan Assessment/Plan (Tele-ICU Physician , Progress Note ) Available chart/ vitals / labs / Images reviewed Video assessment done using teleICU camera, rest of exam as per RN Discussed with RN , EXAM PER RN Events overnight : Afebrile FiO2 - I/O = Drips: Pressors: , hemodynamically stable Consultants: colleen Hospital course: 08/02 - SOB , Afib RVR, + covid 08/05 - to ICU - hypoxix - VT 30 L 80% A/P AHRF / ARDS due to severe COVID19 - worsening - ? VO with fluis resuscitation vs bact PNA vs ARDS with COvid - will check PCT , BNP and cxr - VT 30 L 70% -prone position if able - conservative fluid strategy (aim for even or negative fluid balance - STOP IVF [id number]-9/COVID-19 PNA ( DX 08/02 unvaccinted -Dexamethasone 08/02 - s/p actemra 08/05 -Hypercoagulable state , Eliquis on hold due to hematuria - resumed 08/05 Monitor for superimposed bact PNA -PCT negative on admission , OFF abx - recheck 08/06 A Fib, probably chronic persistent - rate controled - cards follow - OAC held due to david hematuria - resumed on 08/05/21 hyperglycemia - ISS , close f/up on steroids MARITA on presentation - improved with hydration Hematuria -resolved , resumed Eliquis 08/05 -Urology unavailable Lines : periph (Central Line Necessity Reviewed) [place]: + OG: Nutrition: po Analgesia: Anxiety/ delirium na VTE Prophylaxis: eliquis Stress Ulcer Prophylaxis: po Plans in collaboration with bedside consultants and IM MDs. Discussed with RN to reach out if any questions or concerns A total of 35 minutes of critical care time was devoted to this patient today, required to treat and/or prevent further deterioration of critical care condition ( as above DAMIÁN JONES MD Aug 06, 2021 10:23
[2021-08-06] MEDS: LOSARTAN 50 MG (COZAAR) TAB PO SCH (10:36)
--- NOTE | 2021-08-06 11:25 | Progress Note - Cardiology ---
Cardiology SOAP Progress Note Subjective: Transferred to ICU 2 yesterday d/t de-sating Sitting up in bed this morning He feels his breathing is better this morning No c/o CP or palpitations Objective: I&O/Vital Signs 08/06/21 08/06/21 08/06/21 08/06/21 22:00 22:36 23:00 23:59 Pulse 70 85 Resp 19 19 B/P (MAP) 135/91 124/92 Pulse Ox 94 94 88 91 O2 Delivery Vapotherm Vapotherm Vapotherm Vapotherm O2 Flow Rate 30.00 30.00 30.00 30.00 70.00 70.00 FiO2 70 70 08/07/21 08/07/21 08/07/21 08/07/21 00:00 01:00 01:00 02:00 Pulse 74 78 78 80 Resp 22 18 22 B/P (MAP) 123/81 133/99 124/95 Pulse Ox 89 92 92 O2 Delivery Vapotherm Vapotherm Vapotherm O2 Flow Rate 30.00 30.00 30.00 70.00 70.00 70.00 08/07/21 08/07/21 08/07/21 08/07/21 02:56 03:00 04:00 04:00 Pulse 77 83 Resp 17 20 B/P (MAP) 128/93 143/98 Pulse Ox 94 89 89 91 O2 Delivery Vapotherm Vapotherm Vapotherm Vapotherm O2 Flow Rate 30.00 30.00 30.00 30.00 70.00 70.00 FiO2 70 70 08/07/21 08/07/21 08/07/21 08/07/21 05:00 06:00 06:52 07:00 Pulse 77 75 91 Resp 22 25 22 B/P (MAP) 146/104 145/107 152/97 Pulse Ox 90 89 93 86 O2 Delivery Vapotherm Vapotherm Vapotherm Vapotherm O2 Flow Rate 30.00 30.00 30.00 30.00 70.00 70.00 70.00 FiO2 70 08/07/21 08/07/21 08/07/21 08/07/21 07:00 07:30 08:00 08:15 Pulse 80 86 85 Resp 23 14 B/P (MAP) 140/106 Pulse Ox 89 91 O2 Delivery Vapotherm O2 Flow Rate 30.00 70.00 08/07/21 08/07/21 08/07/21 08/07/21 08:19 08:30 08:45 09:00 Temp 36.4 Pulse 93 82 81 Resp 24 19 26 B/P (MAP) 143/99 Pulse Ox 89 91 87 O2 Delivery Vapotherm Vapotherm Vapotherm Vapotherm O2 Flow Rate 30.00 30.00 30.00 30.00 60.00 60.00 60.00 60.00 08/07/21 00:00 Intake Total 1200 ml Output Total 2400 ml Balance -1200 ml Constitutional: AAO x 3, well-developed, well-nourished Respiratory: No accessory muscle use; rhonchi (scattered), other (fair to good, bilateral air entry, diminished at the bases) Cardiovascular: irregularly irregular, S1 and S2, systolic murmur (soft CAMMIE at card base) Gastrointestional: No tender; soft; No guarding, No rebound; audible bowel sounds Extremities: No clubbing, No cyanosis, No significant edema Neurologic/Psychiatric: oriented x 3, other (moves all limbs equally) Skin: No rash on exposed areas, No ulcerations on exposed areas Results/Procedures: Labs Laboratory Tests 08/07/21 04:45: White Blood Count 12.9H, Red Blood Count 5.99H, Hemoglobin 17.1, Hematocrit 54, Mean Corpuscular Volume 90, Mean Corpuscular Hemoglobin 29, Mean Corpuscular Hemoglobin Concent 32, Red Cell Distribution Width 14.8H, Platelet Count 275, Mean Platelet Volume 10.3, Immature Granulocyte % (Auto) 1, Neutrophils (%) (Auto) 93H, Lymphocytes (%) (Auto) 3L, Monocytes (%) (Auto) 3, Eosinophils (%) (Auto) 0, Basophils (%) (Auto) 0, Neutrophils # (Auto) 12.1H, Lymphocytes # (Auto) 0.4L, Monocytes # (Auto) 0.4, Eosinophils # (Auto) 0.0, Basophils # (Auto) 0.0, Immature Granulocyte # (Auto) 0.1, Neutrophils % (Manual) 90, Lymphocytes % (Manual) 3, Monocytes % (Manual) 6, Band Neutrophils 1, Sodium Level 137, Potassium Level 4.2, Chloride Level 97L, Carbon Dioxide Level 27, Anion Gap 13, Blood Urea Nitrogen 18, Creatinine 0.88, Estimat Glomerular Filtration Rate 85, BUN/Creatinine Ratio 20, Glucose Level 116H, Calcium Level 8.7, Phosphorus Level 2.4, Magnesium Level 2.1 Procedures NAME: ANNA AGUILAR [facility] REC#: [id number] PT STATUS: ADM IN : 1950 PHYSICIAN: DAMIÁN JONES MD ADMIT DATE: 08/02/21/ICU Signed Date of Exam:08/06/21 CHEST 1 VIEW, AP/PA ONLY Portable erect AP chest at 404 hours. INDICATION: Respiratory distress. FINDINGS: The heart is enlarged but does seem less prominent than noted on the prior exam of 08/02/2021. However, the alveolar/interstitial infiltrates involving both lung seen previously have increased considerably. The right lung is more severely affected. This appearance does suggest worsening pneumonia/atelectasis and/or pulmonary edema. There is no significant pleural effusion defied but there may be some fluid in the left lung base. The mediastinum is not widened. The osseous structures are intact. IMPRESSION: The appearance of the chest has worsened since the prior study as there is greater involvement of both lungs by alveolar/interstitial pulmonary infiltrates. This may be related to pneumonia/atelectasis, or pulmonary edema or a combination of all three. Dictated by: Dictated on workstation # [id number] Dict: 08/06/2159 Trans: 08/06/2114 [id number] Interpreted by: LOW HUDSON MD Electronically signed by: LOW HUDSON MD 08/06/21 0814 A/P: Assessment: COVID-19 pneumonia and hypoxia at presentation on 08/02/21 - worsening resp status A Fib, probably chronic persistent - rate under fair control - OAC held due to david hematuria (being managed by the Hospitalist maría) resumed on 08/05/21 Hypertension, not well controlled Acute renal insuff, likely due to volume depletion, resolved with hydration Plan: * Worsening clinical status, prognosis guarded * Continue home regimen of ARB. * Increase BB dose for better HR and BP control * Continue long-acting dilt * Monitor labs LEEANNA ROBERT Aug 06, 2021 11:25
[2021-08-06] MEDS: NYSTATIN CREAM (MYCOSTATIN) 30 GM TUBE TP SCH ×3 (13:09→20:53)
[2021-08-06] MEDS ORDERED: FUROSEMIDE 40 MG/4 ML INJ (LASIX) IVP NR (14:00)
--- NOTE | 2021-08-06 16:48 | Progress Note - Cardiology ---
Cardiology SOAP Progress Note Subjective: Increasing weakness, malaise, and shortness of breath, necessitating transfer to ICU Objective: I&O/Vital Signs 08/06/21 08/06/21 08/06/21 08/06/21 05:00 06:00 07:00 07:00 Pulse 90 84 100 82 Resp 22 19 19 B/P (MAP) 160/109 159/103 166/106 Pulse Ox 92 90 95 O2 Delivery Vapotherm Vapotherm Vapotherm O2 Flow Rate 30.00 30.00 30.00 80.00 80.00 70.00 08/06/21 08/06/21 08/06/21 08/06/21 07:15 07:30 07:33 07:39 Pulse 82 89 Resp 16 15 Pulse Ox 94 94 93 O2 Delivery Vapotherm Vapotherm Vapotherm O2 Flow Rate 30.00 30.00 30.00 30.00 70.00 70.00 FiO2 80 70 08/06/21 08/06/21 08/06/21 08/06/21 07:45 08:00 08:15 08:30 Pulse 101 95 Resp 20 20 B/P (MAP) 157/104 Pulse Ox 91 92 94 O2 Delivery Vapotherm Vapotherm Vapotherm O2 Flow Rate 30.00 30.00 30.00 70.00 70.00 FiO2 80 08/06/21 08/06/21 08/06/21 08/06/21 08:32 08:45 08:46 09:00 Temp 36.6 Pulse 95 85 Resp 23 25 B/P (MAP) 165/104 Pulse Ox 93 90 O2 Delivery Vapotherm Vapotherm O2 Flow Rate 30.00 30.00 70.00 70.00 08/06/21 08/06/21 08/06/21 08/06/21 09:15 10:00 10:15 10:30 Pulse 91 83 87 90 Resp 22 23 23 26 B/P (MAP) 156/115 Pulse Ox 86 88 91 91 O2 Delivery Vapotherm Vapotherm Vapotherm Vapotherm O2 Flow Rate 30.00 30.00 30.00 30.00 70.00 70.00 70.00 70.00 08/06/21 08/06/21 08/06/21 08/06/21 10:38 10:45 10:57 11:00 Pulse 95 101 Resp 23 18 B/P (MAP) 194/124 Pulse Ox 91 93 82 O2 Delivery Vapotherm Vapotherm Vapotherm O2 Flow Rate 30.00 30.00 30.00 65.00 65.00 FiO2 65 08/06/21 08/06/21 08/06/21 08/06/21 11:02 11:13 11:15 11:30 Pulse 103 95 Resp 21 22 Pulse Ox 90 89 O2 Delivery Vapotherm Vapotherm Vapotherm O2 Flow Rate 30.00 30.00 30.00 30.00 60.00 60.00 60.00 FiO2 60 08/06/21 08/06/21 08/06/21 08/06/21 11:45 12:00 12:15 12:30 Pulse 96 89 84 91 Resp 20 22 23 21 B/P (MAP) 143/100 Pulse Ox 90 91 91 O2 Delivery Vapotherm Vapotherm Vapotherm O2 Flow Rate 30.00 30.00 30.00 60.00 60.00 60.00 08/06/21 08/06/21 08/06/21 08/06/21 12:45 12:45 13:00 13:00 Pulse 89 92 86 Resp 24 20 B/P (MAP) 144/95 Pulse Ox 92 91 87 O2 Delivery Vapotherm Vapotherm Vapotherm O2 Flow Rate 30.00 30.00 30.00 60.00 60.00 FiO2 60 08/06/21 08/06/21 08/06/21 08/06/21 13:15 13:30 13:45 14:00 Pulse 93 82 64 Resp 24 22 29 21 B/P (MAP) 141/100 Pulse Ox 91 92 86 90 O2 Delivery Vapotherm Vapotherm Vapotherm Vapotherm O2 Flow Rate 30.00 30.00 30.00 30.00 60.00 60.00 60.00 60.00 08/06/21 08/06/21 08/06/21 08/06/21 14:15 14:30 14:38 14:45 Pulse 80 71 87 Resp 23 22 26 Pulse Ox 93 91 91 88 O2 Delivery Vapotherm Vapotherm Vapotherm Vapotherm O2 Flow Rate 30.00 30.00 30.00 30.00 60.00 60.00 60.00 FiO2 60 12/7/21 12/7/21 12/7/21 12/7/21 15:00 15:15 15:30 15:45 Pulse 86 79 73 Resp 21 25 25 B/P (MAP) 144/101 Pulse Ox 84 93 91 O2 Delivery Vapotherm Vapotherm Vapotherm Vapotherm O2 Flow Rate 30.00 30.00 30.00 30.00 60.00 70.00 70.00 70.00 08/06/21 08/06/21 16:00 16:00 Temp 36.3 Pulse 73 Resp 35 B/P (MAP) 131/93 Pulse Ox 89 O2 Delivery Vapotherm O2 Flow Rate 30.00 70.00 08/05/21 23:59 Intake Total 1420 ml Output Total 735 ml Balance 685 ml Constitutional: AAO x 3, well-developed, well-nourished Respiratory: No accessory muscle use; rhonchi (scattered), other (fair to good, bilateral air entry, diminished at the bases) Cardiovascular: irregularly irregular, S1 and S2, systolic murmur (soft CAMMIE at card base) Gastrointestional: No tender; soft; No guarding, No rebound; audible bowel sounds Extremities: No clubbing, No cyanosis, No significant edema Neurologic/Psychiatric: oriented x 3, other (moves all limbs equally) Skin: No rash on exposed areas, No ulcerations on exposed areas Results/Procedures: Labs Laboratory Tests 08/06/21 04:25: D-Dimer 0.62H, Sodium Level 137, Potassium Level 3.9, Chloride Level 99, Carbon Dioxide Level 23, Anion Gap 15H, Blood Urea Nitrogen 12, Creatinine 0.77, Estimat Glomerular Filtration Rate 99, BUN/Creatinine Ratio 16, Glucose Level 120H, Calcium Level 8.8, Phosphorus Level 1.8L, Magnesium Level 1.9, B-Type Natriuretic Peptide 122.7H, Procalcitonin 0.07 Laboratory Tests 08/05/21 05:55 08/06/21 04:25 A/P: Assessment: COVID-19 pneumonia and hypoxia at presentation on 08/02/21 - worsening resp status A Fib, probably chronic persistent - rate under fair control - OAC held due to david hematuria (being managed by the Hospitalist maría) resumed on 08/05/21 Hypertension, not well controlled Acute renal insuff at presentation, likely due to volume depletion, resolved with hydration Plan: * Worsening clinical status, prognosis guarded * Continue home regimen of ARB. * Increase BB dose for better HR and BP control * Continue long-acting dilt * Monitor labs DENIA PARMAR MD FACP FAC CCDS Aug 06, 2021 16:47
--- NOTE | 2021-08-06 17:14 | Progress Note - Hospitalist ---
Subjective HPI/CC On Admission Date Seen by Provider: Aug 06, 2021 Time Seen by Provider: 10:00 Emmanuel Sanches is a 70 year old male with PMH HTN, AFib, who presented with shortness of breath. He has also had a cough. He denies fevers and chills. He has been having diarrhea. He denies nausea and vomiting. He is not vaccinated against COVID-19. Subjective/Events-last exam He is feeling about the same. He is not feeling short of breath. He has not eaten breakfast yet but he has a good appetite. He denies fevers. Objective Exam Vital Signs Vital Signs Date Time Temp Pulse Resp B/P (MAP) Pulse Ox O2 Delivery O2 Flow Rate FiO2 08/06/21 16:00 36.3 08/06/21 16:00 73 35 131/93 89 Vapotherm 30.00 70.00 08/06/21 14:38 60 Capillary Refill : Less Than 3 Seconds General Appearance: No Apparent Distress, WD/WN Respiratory: Lungs Clear, Normal Breath Sounds, No Respiratory Distress, Other (wearing Vapotherm) Cardiovascular: No Murmur, Irregularly Irregular Gastrointestinal: Normal Bowel Sounds, Non Tender, Soft Extremity: Normal Inspection, Non Tender, No Pedal Edema Neurologic/Psychiatric: Alert, No Motor/Sensory Deficits, Normal Mood/Affect Skin: Normal Color, Warm/Dry Results/Procedures Lab Laboratory Tests 08/06/21 04:25 Patient resulted labs reviewed. Imaging: Reviewed Imaging Report Assessment/Plan Assessment and Plan Assess & Plan/Chief Complaint Acute respiratory failure due to COVID-19 Elevated d-dimer Unvaccinated Oxygen requirement stable, on Vapotherm Continue Decadron s/p Actemra 12.6 TeleICU following Procalcitonin within normal limits, antibiotics not indicated Already receiving therapeutic anticoagulation with Eliquis AFib with RVR Hypertension Cardiology following BP remains elevated Continue Cardizem Continue Eliquis Increase Losartan Continue Metoprolol Hematuria Resolved DVT prophylaxis: already receiving therapeutic anticoagulation Lymphopenia associated with COVID-19 resolved MARITA, resolved Critical Care Critically Ill Patient Diagnosis/Problems Diagnosis/Problems (1) Acute respiratory failure with hypoxia Status: Acute (2) COVID-19 Status: Acute (3) Elevated d-dimer Status: Acute (4) Lymphopenia associated with COVID-19 Status: Acute (5) Atrial fibrillation with RVR Status: Acute (6) MARITA (acute kidney injury) Status: Acute (7) HTN (hypertension) Status: Acute Qualifiers: Hypertension type: primary hypertension Qualified Codes: I10 - Essential (primary) hypertension TUCKER GALLEGOS MD Aug 06, 2021 17:14
[2021-08-07] MEDS: RT-ALBUTEROL HFA 8.5 GM INHALER IH SCH ×6 (02:56→21:25)
[2021-08-07 05:13] LABS: BASOPHILS % (AUTO) 0 % (0-10); EOSINOPHILS % (AUTO) 0 % (0-10); HEMATOCRIT 54 % (40-54); HEMOGLOBIN 17.1 g/dL (13.3-17.7); LYMPHOCYTES # (AUTO) 0.4 10^3/uL (1.0-4.0); LYMPHOCYTES % (AUTO) 3 % (12-44); MEAN CORPUSCULAR HEMOGLOBIN 29 pg (25-34); MEAN CORPUSCULAR HGB CONC 32 g/dL (32-36); MEAN CORPUSCULAR VOLUME 90 fL (80-99); MEAN PLATELET VOLUME 10.3 fL (9.0-12.2); MONOCYTES # (AUTO) 0.4 10^3/uL (0.0-1.0); MONOCYTES % (AUTO) 3 % (0-12); NEUTROPHILS # (AUTO) 12.1 10^3/uL (1.8-7.8); NEUTROPHILS % (AUTO) 93 % (42-75); PLATELET COUNT 275 10^3/uL (130-400); WHITE BLOOD COUNT 12.9 10^3/uL (4.3-11.0)
[2021-08-07 05:27] LABS: POTASSIUM 4.2 MMOL/L (3.6-5.0)
[2021-08-07 05:28] LABS: CALCIUM 8.7 MG/DL (8.5-10.1)
[2021-08-07 05:32] LABS: CREATININE SERUM 0.88 MG/DL (0.60-1.30); PHOSPHORUS 2.4 MG/DL (2.3-4.7)
[2021-08-07 05:35] LABS: MAGNESIUM 2.1 MG/DL (1.6-2.4)
[2021-08-07 06:33] LABS: BAND NEUTROPHILS 1 %; LYMPHOCYTES % (MANUAL) 3 %; MONOCYTES % (MANUAL) 6 %; NEUTROPHILS % (MANUAL) 90 %
[2021-08-07] MEDS: KCL 20 MEQ TAB (K-DUR) PO SCH (06:49)
[2021-08-07] MEDS: MAGNESIUM 1 GM/100 ML IVPB 100 ML IV SCH (06:49)
[2021-08-07] MEDS: POTASSIUM CL 10MEQ/50ML IVPB 50 ML IV SCH (06:49)
[2021-08-07] MEDS: APIXABAN 5 MG (ELIQUIS) TABLET PO SCH ×2 (08:20→20:19)
[2021-08-07] MEDS: meTOproloL SUCCINATE 50 MG (TOPROL XL) TAB PO SCH (08:20)
[2021-08-07] MEDS: LOSARTAN 50 MG (COZAAR) TAB PO SCH (08:20)
[2021-08-07] MEDS: NYSTATIN CREAM (MYCOSTATIN) 30 GM TUBE TP SCH ×3 (08:21→20:19)
--- NOTE | 2021-08-07 09:41 | Progress Note - Cardiology ---
Cardiology SOAP Progress Note Subjective: Sitting up in bed States he feels his breathing is better today Reports prod cough No c/o CP or palpitations Objective: I&O/Vital Signs 08/08/21 08/08/21 08/08/21 08/08/21 03:00 03:21 04:00 04:00 Temp 36.1 Pulse 65 66 Resp 19 20 B/P (MAP) Pulse Ox 92 94 90 O2 Delivery Vapotherm Vapotherm Vapotherm Vapotherm O2 Flow Rate 40.00 40.00 40.00 40.00 90.00 90.00 90.00 FiO2 90 08/08/21 08/08/21 08/08/21 08/08/21 05:00 06:00 07:00 07:46 Pulse 79 77 71 Resp 18 18 B/P (MAP) 115/84 122/88 Pulse Ox 93 94 99 O2 Delivery Vapotherm Vapotherm Vapotherm O2 Flow Rate 40.00 40.00 40.00 90.00 90.00 FiO2 90 08/08/21 08/08/21 08/08/21 08/08/21 07:52 08:00 08:00 08:11 Temp 36.0 Pulse 70 B/P (MAP) 125/90 Pulse Ox 99 O2 Delivery Vapotherm Vapotherm Vapotherm O2 Flow Rate 40.00 40.00 40.00 85.00 85.00 FiO2 85 08/08/21 08/08/21 08/08/21 08/08/21 09:00 10:00 10:32 10:55 Pulse 82 84 Resp 15 B/P (MAP) 129/99 145/93 Pulse Ox 94 97 O2 Delivery Vapotherm Vapotherm Vapotherm Vapotherm O2 Flow Rate 40.00 40.00 30.00 30.00 85.00 85.00 65.00 FiO2 65 08/08/21 08/08/21 08/08/21 08/08/21 10:59 11:00 11:51 12:00 Temp 36.7 Pulse 70 Resp 21 B/P (MAP) 108/74 Pulse Ox 92 93 O2 Delivery Vapotherm Vapotherm Vapotherm O2 Flow Rate 30.00 30.00 30.00 60.00 60.00 FiO2 60 08/08/21 08/08/21 08/08/21 08/08/21 12:00 13:00 13:00 13:00 Pulse 65 71 57 Resp 22 12 B/P (MAP) 128/84 118/91 Pulse Ox 89 89 O2 Delivery Vapotherm Vapotherm Vapotherm O2 Flow Rate 30.00 30.00 30.00 60.00 60.00 60.00 08/08/21 00:00 Intake Total 1060 ml Output Total 625 ml Balance 435 ml Constitutional: AAO x 3, well-developed, well-nourished Respiratory: rhonchi, other Cardiovascular: irregularly irregular, S1 and S2, systolic murmur Gastrointestional: soft, audible bowel sounds Extremities: No clubbing, No cyanosis, No significant edema Neurologic/Psychiatric: oriented x 3, other Skin: No rash on exposed areas, No ulcerations on exposed areas Results/Procedures: Labs Laboratory Tests 08/08/21 04:10: Sodium Level 137, Potassium Level 4.4, Chloride Level 97L, Carbon Dioxide Level 28, Anion Gap 12, Blood Urea Nitrogen 28H, Creatinine 1.10, Estimat Glomerular Filtration Rate 66, BUN/Creatinine Ratio 25, Glucose Level 125H, Calcium Level 8.6, Phosphorus Level 3.1, Magnesium Level 2.4 08/08/21 05:45: White Blood Count 10.9, Red Blood Count 5.98H, Hemoglobin 17.3, Hematocrit 53, Mean Corpuscular Volume 88, Mean Corpuscular Hemoglobin 29, Mean Corpuscular Hemoglobin Concent 33, Red Cell Distribution Width 14.6H, Platelet Count 317, Mean Platelet Volume 9.8, Immature Granulocyte % (Auto) 1, Neutrophils (%) (Auto) 91H, Lymphocytes (%) (Auto) 4L, Monocytes (%) (Auto) 5, Eosinophils (%) (Auto) 0, Basophils (%) (Auto) 0, Neutrophils # (Auto) 9.9H, Lymphocytes # (Auto) 0.4L, Monocytes # (Auto) 0.6, Eosinophils # (Auto) 0.0, Basophils # (Auto) 0.0, Immature Granulocyte # (Auto) 0.1 A/P: Assessment: COVID-19 pneumonia and hypoxia at presentation on 08/02/21 - worsening resp status - gradually improvingt A Fib, probably chronic persistent - rate under fair control - OAC held due to david hematuria (being managed by the Hospitalist svce) resumed on 08/05/21 Hypertension - improved Acute renal insuff at presentation, likely due to volume depletion, resolved with hydration Plan: * Worsening clinical status, prognosis guarded * Continue current medication regimen * HR and BP improved with increased dose of BB * Continue long-acting dilt * Monitor labs LEEANNA ROBERT [facility] Aug 07, 2021 09:41
--- NOTE | 2021-08-07 10:02 | Tele-ICU Progress Note ---
Subjective Date Seen by a Provider: Aug 07, 2021 Time Seen by a Provider: 10:01 Sepsis Event Evaluation Height, Weight, BMI Height: '" Weight: lbs. oz. kg; 25.00 BMI Method: Exam Exam Patient acknowledged, consented, and participated in this virtual visit which was conducted using real time audio/video Vital Signs Date Time Temp Pulse Resp B/P (MAP) Pulse Ox O2 Delivery O2 Flow Rate FiO2 08/07/21 09:00 81 26 143/99 87 Vapotherm 30.00 60.00 08/07/21 08:45 82 19 91 Vapotherm 30.00 60.00 08/07/21 08:30 93 24 89 Vapotherm 30.00 60.00 08/07/21 08:19 36.4 Vapotherm 30.00 60.00 08/07/21 08:15 85 14 91 08/07/21 08:00 140/106 08/07/21 07:30 86 23 89 Vapotherm 30.00 70.00 08/07/21 07:00 80 08/07/21 07:00 91 22 152/97 86 Vapotherm 30.00 70.00 08/07/21 06:52 93 Vapotherm 30.00 70 08/07/21 06:00 75 25 145/107 89 Vapotherm 30.00 70.00 08/07/21 05:00 77 22 146/104 90 Vapotherm 30.00 70.00 08/07/21 04:00 91 Vapotherm 30.00 70 08/07/21 04:00 83 20 143/98 89 Vapotherm 30.00 70.00 08/07/21 03:00 77 17 128/93 89 Vapotherm 30.00 70.00 08/07/21 02:56 94 Vapotherm 30.00 70 08/07/21 02:00 80 22 124/95 92 Vapotherm 30.00 70.00 08/07/21 01:00 78 18 133/99 92 Vapotherm 30.00 70.00 08/07/21 01:00 78 08/07/21 00:00 74 22 123/81 89 Vapotherm 30.00 70.00 08/06/21 23:59 91 Vapotherm 30.00 70 08/06/21 23:00 85 19 124/92 88 Vapotherm 30.00 70.00 08/06/21 22:36 94 Vapotherm 30.00 70 08/06/21 22:00 70 19 135/91 94 Vapotherm 30.00 70.00 08/06/21 21:00 76 22 121/83 94 Vapotherm 30.00 70.00 08/06/21 20:00 92 Vapotherm 30.00 70 08/06/21 20:00 80 16 100/73 95 Vapotherm 30.00 70.00 08/06/21 20:00 36.8 08/06/21 19:00 92 20 94 Vapotherm 30.00 70.00 08/06/21 19:00 80 08/06/21 18:40 94 Vapotherm 30.00 70 08/06/21 18:30 24 94 Vapotherm 30.00 70.00 08/06/21 18:15 81 23 92 Vapotherm 30.00 70.00 08/06/21 18:00 82 19 150/117 89 Vapotherm 30.00 70.00 08/06/21 17:45 76 24 95 Vapotherm 30.00 70.00 08/06/21 17:30 69 23 94 Vapotherm 30.00 70.00 08/06/21 17:00 74 23 142/96 89 Vapotherm 30.00 70.00 08/06/21 16:45 89 24 92 Vapotherm 30.00 70.00 08/06/21 16:30 66 19 93 Vapotherm 30.00 70.00 08/06/21 16:15 73 23 90 Vapotherm 30.00 70.00 08/06/21 16:00 94 Vapotherm 30.00 70 08/06/21 16:00 36.3 08/06/21 16:00 73 35 131/93 89 Vapotherm 30.00 70.00 08/06/21 15:45 73 25 91 Vapotherm 30.00 70.00 08/06/21 15:30 79 25 93 Vapotherm 30.00 70.00 08/06/21 15:15 Vapotherm 30.00 70.00 08/06/21 15:00 86 21 144/101 84 Vapotherm 30.00 60.00 08/06/21 14:45 87 26 88 Vapotherm 30.00 60.00 08/06/21 14:38 91 Vapotherm 30.00 60 08/06/21 14:30 71 22 91 Vapotherm 30.00 60.00 08/06/21 14:15 80 23 93 Vapotherm 30.00 60.00 08/06/21 14:00 64 21 141/100 90 Vapotherm 30.00 60.00 08/06/21 13:45 29 86 Vapotherm 30.00 60.00 08/06/21 13:30 82 22 92 Vapotherm 30.00 60.00 08/06/21 13:15 93 24 91 Vapotherm 30.00 60.00 08/06/21 13:00 86 08/06/21 13:00 92 20 144/95 87 Vapotherm 30.00 60.00 08/06/21 12:45 89 24 91 Vapotherm 30.00 60.00 08/06/21 12:45 92 Vapotherm 30.00 60 08/06/21 12:30 91 21 91 Vapotherm 30.00 60.00 08/06/21 12:15 84 23 91 Vapotherm 30.00 60.00 08/06/21 12:00 89 22 143/100 08/06/21 11:45 96 20 90 Vapotherm 30.00 60.00 08/06/21 11:30 95 22 89 Vapotherm 30.00 60.00 08/06/21 11:15 103 21 90 Vapotherm 30.00 60.00 08/06/21 11:13 Vapotherm 30.00 60.00 08/06/21 11:02 30.00 60 08/06/21 11:00 101 18 194/124 82 08/06/21 10:57 93 Vapotherm 30.00 65 08/06/21 10:45 95 23 91 Vapotherm 30.00 65.00 08/06/21 10:38 Vapotherm 30.00 65.00 08/06/21 10:30 90 26 91 Vapotherm 30.00 70.00 08/06/21 10:15 87 23 91 Vapotherm 30.00 70.00 I & O 08/07/21 07:00 Intake Total 1900 ml Output Total 3325 ml Balance -1425 ml Height & Weight Height: '" Weight: lbs. oz. kg; 25.00 BMI Method: General Appearance: No Apparent Distress, WD/WN HEENT: PERRL/EOMI; No Moist Mucous Membranes Neck: Full Range of Motion, Normal Inspection Respiratory: Lungs Clear, Normal Breath Sounds, No Respiratory Distress, Other (wearing Vapotherm) Cardiovascular: No Murmur, Irregularly Irregular Capillary Refill: Less Than 3 Seconds Extremity: Normal Inspection, Non Tender, No Pedal Edema Neurologic/Psychiatric: Alert, No Motor/Sensory Deficits, Normal Mood/Affect Skin: Normal Color, Warm/Dry Results Lab Laboratory Tests 08/06/21 04:25 08/07/21 04:45 Assessment/Plan Assessment/Plan Tele-ICU Physician , Progress Note ) Available chart/ vitals / labs / Images reviewed Video assessment done using teleICU camera, rest of exam as per RN Discussed with RN , EXAM PER RN Events overnight : Afebrile FiO2 - I/O = neg Drips: Pressors: , hemodynamically stable Consultants: colleen Hospital course: 08/02 - SOB , Afib RVR, + covid 08/05 - to ICU - hypoxix - VT 30 L 80% 08/07 VT 30L 60% A/P AHRF / ARDS due to severe COVID19 -VT 30L 60% -prone position if able - conservative fluid strategy (aim for even or negative fluid balance - STOP IVF [id number]/COVID-19 PNA ( DX 08/02 unvaccinted -Dexamethasone 08/02 - s/p actemra 08/05 -Hypercoagulable state , Eliquis on hold due to hematuria - resumed 08/05 Monitor for superimposed bact PNA -PCT negative on admission , OFF abx - neg PCT 08/06 A Fib, probably chronic persistent - rate controled - cards follow - OAC held due to david hematuria - resumed on 08/05/21 hyperglycemia - ISS , close f/up on steroids MARITA on presentation - improved with hydration - IVF stopped Hematuria -resolved , resumed Eliquis 08/05 -Urology unavailable Lines : periph (Central Line Necessity Reviewed) [place]: + OG: Nutrition: po Analgesia: Anxiety/ delirium na VTE Prophylaxis: eliquis Stress Ulcer Prophylaxis: po Plans in collaboration with bedside consultants and IM MDs. Discussed with RN to reach out if any questions or concerns A total of 35 minutes of critical care time was devoted to this patient today, required to treat and/or prevent further deterioration of critical care condition ( as above DAMIÁN JONES MD Aug 07, 2021 10:02
--- NOTE | 2021-08-07 11:57 | Progress Note - Cardiology ---
Cardiology SOAP Progress Note Subjective: Cough persistent. Shortness of breath improving No new symptoms Objective: I&O/Vital Signs 08/06/21 08/07/21 08/07/21 08/07/21 23:59 00:00 01:00 01:00 Pulse 74 78 78 Resp 22 18 B/P (MAP) 123/81 133/99 Pulse Ox 91 89 92 O2 Delivery Vapotherm Vapotherm Vapotherm O2 Flow Rate 30.00 30.00 30.00 70.00 70.00 FiO2 70 08/07/21 08/07/21 08/07/21 08/07/21 02:00 02:56 03:00 04:00 Pulse 80 77 83 Resp 22 17 20 B/P (MAP) 124/95 128/93 143/98 Pulse Ox 92 94 89 89 O2 Delivery Vapotherm Vapotherm Vapotherm Vapotherm O2 Flow Rate 30.00 30.00 30.00 30.00 70.00 70.00 70.00 FiO2 70 08/07/21 08/07/21 08/07/21 08/07/21 04:00 05:00 06:00 06:52 Pulse 77 75 Resp 22 25 B/P (MAP) 146/104 145/107 Pulse Ox 91 90 89 93 O2 Delivery Vapotherm Vapotherm Vapotherm Vapotherm O2 Flow Rate 30.00 30.00 30.00 30.00 70.00 70.00 FiO2 70 70 08/07/21 08/07/21 08/07/21 08/07/21 07:00 07:00 07:30 08:00 Pulse 91 80 86 Resp 22 23 B/P (MAP) 152/97 140/106 Pulse Ox 86 89 O2 Delivery Vapotherm Vapotherm O2 Flow Rate 30.00 30.00 70.00 70.00 08/07/21 08/07/21 08/07/21 08/07/21 08:15 08:19 08:30 08:45 Temp 36.4 Pulse 85 93 82 Resp 14 24 19 Pulse Ox 91 89 91 O2 Delivery Vapotherm Vapotherm Vapotherm O2 Flow Rate 30.00 30.00 30.00 60.00 60.00 60.00 08/07/21 08/07/21 09:00 10:39 Pulse 81 Resp 26 B/P (MAP) 143/99 Pulse Ox 87 93 O2 Delivery Vapotherm Vapotherm O2 Flow Rate 30.00 30.00 60.00 FiO2 70 08/07/21 00:00 Intake Total 1200 ml Output Total 2400 ml Balance -1200 ml Constitutional: AAO x 3, well-developed, well-nourished Respiratory: rhonchi, other Cardiovascular: irregularly irregular, S1 and S2, systolic murmur Gastrointestional: soft, audible bowel sounds Extremities: No clubbing, No cyanosis, No significant edema Neurologic/Psychiatric: oriented x 3, other Skin: No rash on exposed areas, No ulcerations on exposed areas Results/Procedures: Labs Laboratory Tests 08/07/21 04:45: White Blood Count 12.9H, Red Blood Count 5.99H, Hemoglobin 17.1, Hematocrit 54, Mean Corpuscular Volume 90, Mean Corpuscular Hemoglobin 29, Mean Corpuscular Hemoglobin Concent 32, Red Cell Distribution Width 14.8H, Platelet Count 275, Mean Platelet Volume 10.3, Immature Granulocyte % (Auto) 1, Neutrophils (%) (Auto) 93H, Lymphocytes (%) (Auto) 3L, Monocytes (%) (Auto) 3, Eosinophils (%) (Auto) 0, Basophils (%) (Auto) 0, Neutrophils # (Auto) 12.1H, Lymphocytes # (Auto) 0.4L, Monocytes # (Auto) 0.4, Eosinophils # (Auto) 0.0, Basophils # (Auto) 0.0, Immature Granulocyte # (Auto) 0.1, Neutrophils % (Manual) 90, Lymphocytes % (Manual) 3, Monocytes % (Manual) 6, Band Neutrophils 1, Sodium Level 137, Potassium Level 4.2, Chloride Level 97L, Carbon Dioxide Level 27, Anion Gap 13, Blood Urea Nitrogen 18, Creatinine 0.88, Estimat Glomerular Filtration Rate 85, BUN/Creatinine Ratio 20, Glucose Level 116H, Calcium Level 8.7, Phosphorus Level 2.4, Magnesium Level 2.1 A/P: Assessment: COVID-19 pneumonia and hypoxia at presentation on 08/02/21 - worsening resp status - gradually improvingt A Fib, probably chronic persistent - rate under fair control - OAC held due to david hematuria (being managed by the Hospitalist maría) resumed on 08/05/21 Hypertension - improved Acute renal insuff at presentation, likely due to volume depletion, resolved with hydration Plan: * Worsening clinical status, prognosis guarded * Continue current medication regimen * HR and BP improved with increased dose of BB * Continue long-acting dilt * Monitor labs Note: I saw the patient collaboratively with Roseann Luna APRN, and discussed the case with her. My assessment and plan are stated above DENIA PARMAR MD FACP [facility] CCDS Aug 07, 2021 11:57
--- NOTE | 2021-08-07 18:03 | Progress Note - Hospitalist ---
Subjective HPI/CC On Admission Date Seen by Provider: Aug 07, 2021 Time Seen by Provider: 10:30 Emmanuel Sanches is a 70 year old male with PMH HTN, AFib, who presented with shortness of breath. He has also had a cough. He denies fevers and chills. He has been having diarrhea. He denies nausea and vomiting. He is not vaccinated against COVID-19. Subjective/Events-last exam He is feeling better. He is not short of breath. He has no other complaints. Objective Exam Vital Signs Vital Signs Date Time Temp Pulse Resp B/P (MAP) Pulse Ox O2 Delivery O2 Flow Rate FiO2 08/07/21 16:30 76 14 83 Vapotherm 30.00 60.00 08/07/21 16:26 60 08/07/21 16:00 36.1 08/07/21 16:00 149/89 Capillary Refill : Less Than 3 Seconds General Appearance: No Apparent Distress, WD/WN Respiratory: Lungs Clear, Normal Breath Sounds, No Respiratory Distress Cardiovascular: Regular Rate, Rhythm, No Edema, No Murmur Gastrointestinal: Normal Bowel Sounds, Non Tender, Soft Extremity: Normal Inspection, Non Tender, No Pedal Edema Neurologic/Psychiatric: Alert, Oriented x3, No Motor/Sensory Deficits, Normal Mood/Affect Skin: Normal Color, Warm/Dry Results/Procedures Lab Laboratory Tests 08/07/21 04:45 Patient resulted labs reviewed. Imaging: Reviewed Imaging Report Assessment/Plan Assessment and Plan Assess & Plan/Chief Complaint Acute respiratory failure due to COVID-19 Elevated d-dimer Unvaccinated Oxygen requirement stable, on Vapotherm Continue Decadron s/p Actemra 12.6 TeleICU following Procalcitonin within normal limits, antibiotics not indicated Already receiving therapeutic anticoagulation with Eliquis AFib with RVR Hypertension Cardiology following BP remains elevated Continue Cardizem Continue Eliquis Continue Losartan Increase Metoprolol Hematuria Resolved DVT prophylaxis: already receiving therapeutic anticoagulation Lymphopenia associated with COVID-19 resolved MARITA, resolved Critical Care Critically Ill Patient Diagnosis/Problems Diagnosis/Problems (1) Acute respiratory failure with hypoxia Status: Acute (2) COVID-19 Status: Acute (3) Elevated d-dimer Status: Acute (4) Lymphopenia associated with COVID-19 Status: Acute (5) Atrial fibrillation with RVR Status: Acute (6) MARITA (acute kidney injury) Status: Acute (7) HTN (hypertension) Status: Acute Qualifiers: Hypertension type: primary hypertension Qualified Codes: I10 - Essential (primary) hypertension TUCKER GALLEGOS MD Aug 07, 2021 18:03
[2021-08-07] MEDS ORDERED: guaiFENesin/DM (ROBITUSSIN DM) 10 ML UDC PO PRN (21:15)
[2021-08-07] MEDS ORDERED: FUROSEMIDE 40 MG/4 ML INJ (LASIX) ONE (23:09)
[2021-08-07] MEDS ORDERED: FUROSEMIDE 40 MG/4 ML INJ (LASIX) IVP ONE (23:15)
[2021-08-08] MEDS: RT-ALBUTEROL HFA 8.5 GM INHALER IH SCH ×6 (02:19→22:14)
[2021-08-08 04:47] LABS: POTASSIUM 4.4 MMOL/L (3.6-5.0)
[2021-08-08 04:48] LABS: CALCIUM 8.6 MG/DL (8.5-10.1)
[2021-08-08 04:52] LABS: PHOSPHORUS 3.1 MG/DL (2.3-4.7)
[2021-08-08 04:53] LABS: CREATININE SERUM 1.1 MG/DL (0.60-1.30)
[2021-08-08 04:55] LABS: MAGNESIUM 2.4 MG/DL (1.6-2.4)
[2021-08-08] MEDS: MAGNESIUM 1 GM/100 ML IVPB 100 ML IV SCH (05:28)
[2021-08-08] MEDS: POTASSIUM CL 10MEQ/50ML IVPB 50 ML IV SCH (05:28)
[2021-08-08] MEDS: KCL 20 MEQ TAB (K-DUR) PO SCH (05:28)
[2021-08-08 05:55] LABS: BASOPHILS % (AUTO) 0 % (0-10); EOSINOPHILS % (AUTO) 0 % (0-10); HEMATOCRIT 53 % (40-54); HEMOGLOBIN 17.3 g/dL (13.3-17.7); LYMPHOCYTES # (AUTO) 0.4 10^3/uL (1.0-4.0); LYMPHOCYTES % (AUTO) 4 % (12-44); MEAN CORPUSCULAR HEMOGLOBIN 29 pg (25-34); MEAN CORPUSCULAR HGB CONC 33 g/dL (32-36); MEAN CORPUSCULAR VOLUME 88 fL (80-99); MEAN PLATELET VOLUME 9.8 fL (9.0-12.2); MONOCYTES # (AUTO) 0.6 10^3/uL (0.0-1.0); MONOCYTES % (AUTO) 5 % (0-12); NEUTROPHILS # (AUTO) 9.9 10^3/uL (1.8-7.8); NEUTROPHILS % (AUTO) 91 % (42-75); PLATELET COUNT 317 10^3/uL (130-400); WHITE BLOOD COUNT 10.9 10^3/uL (4.3-11.0)
[2021-08-08] MEDS: LOSARTAN 50 MG (COZAAR) TAB PO SCH (08:35)
[2021-08-08] MEDS: meTOproloL SUCCINATE 50 MG (TOPROL XL) TAB PO SCH (08:36)
[2021-08-08] MEDS: LACTATED RINGERS 1,000 ML IV SCH ×2 (08:36→18:00)
[2021-08-08] MEDS: APIXABAN 5 MG (ELIQUIS) TABLET PO SCH ×2 (08:36→19:57)
[2021-08-08] MEDS: NYSTATIN CREAM (MYCOSTATIN) 30 GM TUBE TP SCH ×3 (08:37→20:03)
--- NOTE | 2021-08-08 10:08 | Tele-ICU Progress Note ---
Subjective Date Seen by a Provider: Aug 08, 2021 Time Seen by a Provider: 10:08 Sepsis Event Evaluation Height, Weight, BMI Height: '" Weight: lbs. oz. kg; 25.00 BMI Method: Exam Exam Patient acknowledged, consented, and participated in this virtual visit which was conducted using real time audio/video Vital Signs Date Time Temp Pulse Resp B/P (MAP) Pulse Ox O2 Delivery O2 Flow Rate FiO2 08/08/21 08:11 36.0 08/08/21 08:00 99 Vapotherm 40.00 85 08/08/21 07:46 99 Vapotherm 40.00 90 08/08/21 07:00 71 08/08/21 06:00 77 18 122/88 94 Vapotherm 40.00 90.00 08/08/21 05:00 79 18 115/84 93 Vapotherm 40.00 90.00 08/08/21 04:00 66 20 90 Vapotherm 40.00 90.00 08/08/21 04:00 94 Vapotherm 40.00 90 08/08/21 03:21 36.1 Vapotherm 40.00 90.00 08/08/21 03:00 65 19 92 Vapotherm 40.00 90.00 08/08/21 02:19 92 Vapotherm 40.00 90 08/08/21 02:00 69 22 99/71 90 Vapotherm 40.00 90.00 08/08/21 01:30 Vapotherm 40.00 90.00 08/08/21 01:00 71 08/08/21 01:00 71 21 102/79 89 Vapotherm 40.00 85.00 08/08/21 00:00 66 17 99/75 90 Vapotherm 40.00 85.00 08/08/21 00:00 92 Vapotherm 40.00 85 08/07/21 23:00 64 21 134/78 91 Vapotherm 40.00 85.00 08/07/21 22:56 36.0 Vapotherm 40.00 85.00 08/07/21 22:00 78 25 127/76 89 Vapotherm 30.00 70.00 08/07/21 21:25 91 Vapotherm 40.00 70 08/07/21 21:00 73 25 123/85 88 Vapotherm 30.00 70.00 08/07/21 20:00 90 Vapotherm 30.00 70 08/07/21 20:00 71 19 127/79 93 Vapotherm 30.00 70.00 08/07/21 19:00 82 08/07/21 19:00 82 20 142/96 89 Vapotherm 30.00 70.00 08/07/21 19:00 36.2 Vapotherm 30.00 70.00 08/07/21 18:58 93 Vapotherm 30.00 60 08/07/21 18:00 84 31 84 Vapotherm 30.00 60.00 08/07/21 17:45 71 23 90 Vapotherm 30.00 60.00 08/07/21 17:30 75 21 90 Vapotherm 30.00 60.00 08/07/21 17:15 74 28 90 Vapotherm 30.00 60.00 08/07/21 17:00 68 22 136/88 88 Vapotherm 30.00 60.00 08/07/21 16:45 80 21 91 Vapotherm 30.00 60.00 08/07/21 16:30 76 14 83 Vapotherm 30.00 60.00 08/07/21 16:26 95 Vapotherm 30.00 60 08/07/21 16:15 75 14 88 Vapotherm 30.00 60.00 08/07/21 16:00 36.1 08/07/21 16:00 72 17 149/89 87 Vapotherm 30.00 60.00 08/07/21 15:51 93 Vapotherm 30.00 60 08/07/21 15:45 79 19 89 Vapotherm 30.00 60.00 08/07/21 15:30 65 18 89 Vapotherm 30.00 60.00 08/07/21 15:15 75 24 89 Vapotherm 30.00 60.00 08/07/21 15:00 70 25 138/90 86 Vapotherm 30.00 60.00 08/07/21 14:45 62 22 91 Vapotherm 30.00 60.00 08/07/21 14:30 62 20 92 Vapotherm 30.00 60.00 08/07/21 14:15 65 24 93 Vapotherm 30.00 60.00 08/07/21 14:00 63 24 123/80 88 Vapotherm 30.00 60.00 08/07/21 13:45 82 13 84 Vapotherm 30.00 60.00 08/07/21 13:15 65 20 Vapotherm 30.00 60.00 08/07/21 13:15 65 20 08/07/21 13:00 72 08/07/21 13:00 61 17 120/76 Vapotherm 30.00 60.00 08/07/21 12:45 71 21 Vapotherm 30.00 60.00 08/07/21 12:30 73 28 86 Vapotherm 30.00 60.00 08/07/21 12:15 69 25 87 Vapotherm 30.00 60.00 08/07/21 12:00 76 28 125/88 90 Vapotherm 30.00 60.00 08/07/21 12:00 95 Vapotherm 30.00 70 08/07/21 12:00 36.6 08/07/21 11:45 71 24 88 Vapotherm 30.00 60.00 08/07/21 11:30 71 24 89 Vapotherm 30.00 60.00 08/07/21 11:15 85 22 88 Vapotherm 30.00 60.00 08/07/21 11:00 86 22 138/86 89 Vapotherm 30.00 60.00 08/07/21 10:45 89 24 92 Vapotherm 30.00 60.00 08/07/21 10:39 93 Vapotherm 30.00 70 08/07/21 10:30 73 23 92 Vapotherm 30.00 60.00 08/07/21 10:15 82 21 92 Vapotherm 30.00 60.00 I & O 08/08/21 07:00 Intake Total 1300 ml Output Total 1350 ml Balance -50 ml Height & Weight Height: '" Weight: lbs. oz. kg; 25.00 BMI Method: General Appearance: No Apparent Distress, WD/WN HEENT: PERRL/EOMI; No Moist Mucous Membranes Neck: Full Range of Motion, Normal Inspection Respiratory: Lungs Clear, Normal Breath Sounds, No Respiratory Distress Cardiovascular: Regular Rate, Rhythm, No Edema, No Murmur Capillary Refill: Less Than 3 Seconds Extremity: Normal Inspection, Non Tender, No Pedal Edema Neurologic/Psychiatric: Alert, Oriented x3, No Motor/Sensory Deficits, Normal Mood/Affect Skin: Normal Color, Warm/Dry Results Lab Laboratory Tests 08/07/21 04:45 08/08/21 04:10 08/08/21 05:45 Assessment/Plan Assessment/Plan Tele-ICU Physician , Progress Note ) Available chart/ vitals / labs / Images reviewed Video assessment done using teleICU camera, rest of exam as per RN Discussed with RN , EXAM PER RN Events overnight : Afebrile FiO2 -VT 40 L / 90% I/O = even Drips: lr 100 Pressors: , hemodynamically stable Consultants: colleen Hospital course: 08/02 - SOB , Afib RVR, + covid 08/05 - to ICU - hypoxix - VT 30 L 80% 08/07 VT 30L 60% 08/08 VT 40 L / 90% A/P AHRF / ARDS due to severe COVID19 -VT 40 L / 90% - FIO2 NEEDS INCREASED -prone position if able - conservative fluid strategy (aim for even or negative fluid balance - [id number]-[id number]-4/COVID-19 PNA ( DX 08/02 unvaccinted -Dexamethasone 08/02 - s/p actemra 08/05 -Hypercoagulable state , Eliquis resumed 08/05 Monitor for superimposed bact PNA -PCT negative on admission , OFF abx - neg PCT 08/06 A Fib, probably chronic persistent - rate controled - cards follow - OAC was on hold due to david hematuria - resumed on 08/05/21 hyperglycemia - ISS , close f/up on steroids MARITA on presentation - improved with hydration - IVF stopped- stable Hematuria -resolved , resumed Eliquis 08/05 -Urology unavailable Lines : periph (Central Line Necessity Reviewed) [place]: + OG: Nutrition: po Analgesia: Anxiety/ delirium n/a VTE Prophylaxis: eliquis Stress Ulcer Prophylaxis: po Plans in collaboration with bedside consultants and IM MDs. Discussed with RN to reach out if any questions or concerns A total of 35 minutes of critical care time was devoted to this patient today, required to treat and/or prevent further deterioration of critical care condition ( as above DAMIÁN JONES MD Aug 08, 2021 10:08
--- NOTE | 2021-08-08 10:23 | Physical Therapy Evaluation ---
PT Evaluation-General Medical Diagnosis Admission Date Aug 02, 2021 at 10:50 Medical Diagnosis: covid 19 Onset Date: Aug 02, 2021 Therapy Diagnosis Therapy Diagnosis: impaired mobility, strength, endurance Precautions Precautions/Isolations: Airborne Isolation, Fall Prevention Referral Physician: Antony Reason for Referral: Evaluation/Treatment Medical History Pertinent Medical History: Atrial Fib, HTN Reviewed History: Yes Social History Home: Single Level Current Living Status: room mates Entry Into Home: Stairs Without Railing PT Steps Into Home: 2 Prior Prior Level of Function SCALE: Activities may be completed with or without assistive devices. 8-Fpuidywhso-zbfmhgk completes the activity by him/herself with no assistance from a helper. 5-Set-up or Clean-up Assistance-helper sets up or cleans up; patient completes activity. [place] assists only prior to or following the activity. 4-Supervision or Touching Assistance-helper provides verbal cues and/or touching/steadying and/or contact guard assistance as patient completes activity. Assistance may be provided throughout the activity or intermittently. 3-Partial/Moderate Assistance-helper does LESS THAN HALF the effort. [place] lifts, holds or supports trunk or limbs, but provides less than half the effort. 2-Substantial/Maximal Assistance-helper does MORE THAN HALF the effort. [place] lifts or holds trunk or limbs and provides more than half the effort. 0-Tcanurioh-cgplpx does ALL the effort. Patient does none of the effort to complete the activity. Or, the assistance of 2 or more helpers is required for the patient to complete the activity. If activity was not attempted, code reason: 7-Patient Refused. 9-Not Applicable-not attempted and the patient did not perform the activity before the current illness, exacerbation or injury. 10-Not Attempted due to Environmental Limitations-(lack of equipment, weather restraints, etc.). 88-Not Attempted due to Medical Conditions or Safety Concerns. Bed Mobility: 6 Transfers (B,C,W/C): 6 Gait: 6 Stairs: 6 Indoor Mobility (Ambulation): Independent Stairs: Independent PT Evaluation-Current Subjective Patient in bed pre tx, agrees to PT, has no complaints of pain. Pt/Family Goals to be independent at home Objective Patient Orientation: Person, Place, Situation Attachments: Oxygen, [place] Catheter ROM/Strength ROM Lower Extremities WNL Strength Lower Extremities BLE grossly 4/5 Sensory Hearing: Functional Sensation Right Lower Extremit: Intact Sensation Left Lower Extremity: Intact Transfers Roll Left to Right (QC): 6 Lying to Sitting/Side of Bed(Q: 3 Sit to Stand (QC): 3 Chair/Akz-mo-Vrowv Xfer(QC): 3 Min assist for sit to stand and transfers, patient very unsteady and weak. Treatment BLE seated exercises x20 (AP, LAQ) Assessment/Needs Patient in bedside chair post tx, nurse notified, has nurse call, phone, tray, all needs met. Patient has impaired mobility, strength, endurance. Needs min assist for transfers. O2 98% when sitting in the chair. Rehab Potential: Fair PT Long-Term Goals Spindle Frame Carver Goals PT Spindle Frame Carver Goals Time Frame: Aug 15, 2021 Roll Left & Right (QC): 6 Sit to Lying (QC): 6 Lying-Sitting on Side/Bed(QC): 6 Sit to Stand (QC): 6 Chair/Kli-eq-Vjldb Xfer(QC): 6 Walk 10 feet (QC): 6 Walk 50ft with 2 Turns (QC): 6 PT Plan Problem List Problem List: Activity Tolerance, Functional Strength, Safety, Balance, Gait, Transfer, Bed Mobility, ROM Treatment/Plan Treatment Plan: Continue Plan of Care Treatment Plan: Bed Mobility, Education, Functional Activity Holly, Functional Strength, Gait, Safety, Therapeutic Exercise, Transfers Treatment Duration: Aug 15, 2021 Frequency: 6 times per week Estimated Hrs Per Day: .25 hour per day Patient and/or Family Agrees t: Yes Safety Risks/Education Patient Education: Transfer Techniques, Correct Positioning, Safety Issues Teaching Recipient: Patient Teaching Methods: Demonstration, Discussion Response to Teaching: Reinforcement Needed Discharge Recommendations Plan Patient will perform bed mobility and transfer training, balance and endurance training, functional strengthening, stair training, gait training, and education, to improve functional mobility and independence at home. Therapy Discharge Recommendati: Home & Family, Post Acute PT Time/GCodes Time In: 0948 Time Out: 1004 Total Billed Treatment Time: 16 Total Billed Treatment 1 visit COTY SIMS PT Aug 08, 2021 10:23
--- NOTE | 2021-08-08 13:45 | Progress Note - Cardiology ---
Cardiology SOAP Progress Note Subjective: No cp or palp or syncope Shortness of breath is improving Gen malaise and weakness present No n/v/d Objective: I&O/Vital Signs 08/08/21 08/08/21 08/08/21 08/08/21 02:00 02:19 03:00 03:21 Temp 36.1 Pulse 69 65 Resp 22 19 B/P (MAP) 99/71 Pulse Ox 90 92 92 O2 Delivery Vapotherm Vapotherm Vapotherm Vapotherm O2 Flow Rate 40.00 40.00 40.00 40.00 90.00 90.00 90.00 FiO2 90 08/08/21 08/08/21 08/08/21 08/08/21 04:00 04:00 05:00 06:00 Pulse 66 79 77 Resp 20 18 18 B/P (MAP) 115/84 122/88 Pulse Ox 94 90 93 94 O2 Delivery Vapotherm Vapotherm Vapotherm Vapotherm O2 Flow Rate 40.00 40.00 40.00 40.00 90.00 90.00 90.00 FiO2 90 08/08/21 08/08/21 08/08/21 08/08/21 07:00 07:46 07:52 08:00 Pulse 71 Pulse Ox 99 99 O2 Delivery Vapotherm Vapotherm Vapotherm O2 Flow Rate 40.00 40.00 40.00 85.00 FiO2 90 85 08/08/21 08/08/21 08/08/21 08/08/21 08:00 08:11 09:00 10:00 Temp 36.0 Pulse 70 82 84 Resp 15 B/P (MAP) 125/90 129/99 145/93 Pulse Ox 94 O2 Delivery Vapotherm Vapotherm Vapotherm O2 Flow Rate 40.00 40.00 40.00 85.00 85.00 85.00 08/08/21 08/08/21 08/08/21 08/08/21 10:32 10:55 10:59 11:00 Pulse 70 Resp 21 B/P (MAP) 108/74 Pulse Ox 97 92 O2 Delivery Vapotherm Vapotherm Vapotherm Vapotherm O2 Flow Rate 30.00 30.00 30.00 30.00 65.00 60.00 60.00 FiO2 65 08/08/21 08/08/21 08/08/21 08/08/21 11:51 12:00 12:00 13:00 Temp 36.7 Pulse 65 Resp 22 B/P (MAP) 128/84 Pulse Ox 93 89 O2 Delivery Vapotherm Vapotherm Vapotherm O2 Flow Rate 30.00 30.00 30.00 60.00 60.00 FiO2 60 08/08/21 13:00 Pulse 57 Resp 12 B/P (MAP) 118/91 Pulse Ox 89 O2 Delivery Vapotherm O2 Flow Rate 30.00 60.00 08/08/21 00:00 Intake Total 1060 ml Output Total 625 ml Balance 435 ml Constitutional: AAO x 3, well-developed, well-nourished Respiratory: rhonchi, other Cardiovascular: irregularly irregular, S1 and S2, systolic murmur Gastrointestional: soft, audible bowel sounds Extremities: No clubbing, No cyanosis, No significant edema Neurologic/Psychiatric: oriented x 3, other Skin: No rash on exposed areas, No ulcerations on exposed areas Results/Procedures: Labs Laboratory Tests 08/08/21 04:10: Sodium Level 137, Potassium Level 4.4, Chloride Level 97L, Carbon Dioxide Level 28, Anion Gap 12, Blood Urea Nitrogen 28H, Creatinine 1.10, Estimat Glomerular Filtration Rate 66, BUN/Creatinine Ratio 25, Glucose Level 125H, Calcium Level 8.6, Phosphorus Level 3.1, Magnesium Level 2.4 08/08/21 05:45: White Blood Count 10.9, Red Blood Count 5.98H, Hemoglobin 17.3, Hematocrit 53, M mitchell Corpuscular Volume 88, Mean Corpuscular Hemoglobin 29, Mean Corpuscular Hemoglobin Concent 33, Red Cell Distribution Width 14.6H, Platelet Count 317, Mean Platelet Volume 9.8, Immature Granulocyte % (Auto) 1, Neutrophils (%) (Auto) 91H, Lymphocytes (%) (Auto) 4L, Monocytes (%) (Auto) 5, Eosinophils (%) (Auto) 0, Basophils (%) (Auto) 0, Neutrophils # (Auto) 9.9H, Lymphocytes # (Auto) 0.4L, Monocytes # (Auto) 0.6, Eosinophils # (Auto) 0.0, Basophils # (Auto) 0.0, Immature Granulocyte # (Auto) 0.1 Laboratory Tests 08/07/21 04:45 08/08/21 04:10 08/08/21 05:45 A/P: Assessment: COVID-19 pneumonia and hypoxia at presentation on 08/02/21 - improving A Fib, probably chronic persistent - rate under fair control - OAC held due to david hematuria (managed by the Hospitalist maría) resumed on 08/05/21 Hypertension - improved Acute renal insuff at presentation, likely due to volume depletion, resolved with hydration Plan: * Continue current medication regimen * Monitor labs DENIA PARMAR MD [facility] CCD Aug 08, 2021 13:45
--- NOTE | 2021-08-08 17:22 | Progress Note - Hospitalist ---
Subjective HPI/CC On Admission Date Seen by Provider: Aug 08, 2021 Time Seen by Provider: 10:15 Emmanuel Sanches is a 70 year old male with PMH HTN, AFib, who presented with shortness of breath. He has also had a cough. He denies fevers and chills. He has been having diarrhea. He denies nausea and vomiting. He is not vaccinated against COVID-19. Subjective/Events-last exam He is feeling ok this morning. He is sitting in his chair. He ate breakfast without issue. Objective Exam Vital Signs Vital Signs Date Time Temp Pulse Resp B/P (MAP) Pulse Ox O2 Delivery O2 Flow Rate FiO2 08/08/21 16:26 Vapotherm 35.00 65.00 08/08/21 16:00 70 21 131/79 92 08/08/21 16:00 65 08/08/21 16:00 36.2 Capillary Refill : Less Than 3 Seconds General Appearance: No Apparent Distress, WD/WN, Chronically ill Respiratory: Lungs Clear, Normal Breath Sounds, No Respiratory Distress Cardiovascular: Regular Rate, Rhythm, No Edema, No Murmur Gastrointestinal: Normal Bowel Sounds, Non Tender, Soft Extremity: Normal Inspection, Non Tender, No Pedal Edema Neurologic/Psychiatric: Alert, Oriented x3, Normal Mood/Affect Skin: Normal Color, Warm/Dry Results/Procedures Lab Laboratory Tests 08/08/21 04:10 08/08/21 05:45 Patient resulted labs reviewed. Imaging: Reviewed Imaging Report Assessment/Plan Assessment and Plan Assess & Plan/Chief Complaint Acute respiratory failure due to COVID-19 Elevated d-dimer Unvaccinated Oxygen requirement stable, on Vapotherm Continue Decadron s/p Actemra 08/05 TeleICU following Procalcitonin within normal limits, antibiotics not indicated Already receiving therapeutic anticoagulation with Eliquis AFib with RVR Hypertension Cardiology following BP remains elevated Continue Cardizem Continue Eliquis Continue Losartan and Metoprolol DVT prophylaxis: already receiving therapeutic anticoagulation Lymphopenia associated with COVID-19 resolved MARITA, resolved Hematuria, resovled Critical Care Critically Ill Patient Diagnosis/Problems Diagnosis/Problems (1) Acute respiratory failure with hypoxia Status: Acute (2) COVID-19 Status: Acute (3) Elevated d-dimer Status: Acute (4) Lymphopenia associated with COVID-19 Status: Acute (5) Atrial fibrillation with RVR Status: Acute (6) MARITA (acute kidney injury) Status: Acute (7) HTN (hypertension) Status: Acute Qualifiers: Hypertension type: primary hypertension Qualified Codes: I10 - Essential (primary) hypertension TUCKER GALLEGOS MD Aug 08, 2021 17:21
[2021-08-08 21:43] VITALS: BP 131/79
[2021-08-08 22:16] VITALS: BP 133/82
[2021-08-09] MEDS: LACTATED RINGERS 1,000 ML IV SCH ×3 (01:56→21:11)
[2021-08-09 02:56] VITALS: BP 152/90
[2021-08-09] MEDS: RT-ALBUTEROL HFA 8.5 GM INHALER IH SCH ×6 (02:56→21:37)
[2021-08-09 05:51] LABS: BASOPHILS % (AUTO) 0 % (0-10); EOSINOPHILS % (AUTO) 0 % (0-10); HEMATOCRIT 53 % (40-54); HEMOGLOBIN 17.4 g/dL (13.3-17.7); LYMPHOCYTES # (AUTO) 0.4 10^3/uL (1.0-4.0); LYMPHOCYTES % (AUTO) 4 % (12-44); MEAN CORPUSCULAR HEMOGLOBIN 29 pg (25-34); MEAN CORPUSCULAR HGB CONC 33 g/dL (32-36); MEAN CORPUSCULAR VOLUME 88 fL (80-99); MEAN PLATELET VOLUME 9.3 fL (9.0-12.2); MONOCYTES # (AUTO) 0.6 10^3/uL (0.0-1.0); MONOCYTES % (AUTO) 5 % (0-12); NEUTROPHILS % (AUTO) 90 % (42-75); PLATELET COUNT 319 10^3/uL (130-400); WHITE BLOOD COUNT 11.1 10^3/uL (4.3-11.0)
[2021-08-09 06:02] LABS: POTASSIUM 4.3 MMOL/L (3.6-5.0)
[2021-08-09 06:04] LABS: CALCIUM 8.4 MG/DL (8.5-10.1)
[2021-08-09 06:08] LABS: CREATININE SERUM 0.86 MG/DL (0.60-1.30); PHOSPHORUS 3.1 MG/DL (2.3-4.7)
[2021-08-09 06:10] LABS: MAGNESIUM 2.3 MG/DL (1.6-2.4)
[2021-08-09] MEDS: MAGNESIUM 1 GM/100 ML IVPB 100 ML IV SCH (06:24)
[2021-08-09] MEDS: POTASSIUM CL 10MEQ/50ML IVPB 50 ML IV SCH (06:24)
[2021-08-09] MEDS: KCL 20 MEQ TAB (K-DUR) PO SCH (06:25)
[2021-08-09] MEDS: meTOproloL SUCCINATE 50 MG (TOPROL XL) TAB PO SCH (08:14)
[2021-08-09] MEDS: LOSARTAN 50 MG (COZAAR) TAB PO SCH (08:14)
[2021-08-09] MEDS: APIXABAN 5 MG (ELIQUIS) TABLET PO SCH ×2 (08:14→19:46)
[2021-08-09] MEDS: NYSTATIN CREAM (MYCOSTATIN) 30 GM TUBE TP SCH ×3 (08:15→19:46)
--- NOTE | 2021-08-09 08:58 | Progress Note - Cardiology ---
Cardiology SOAP Progress Note Subjective: Sitting up in bed eating morning meal States he feels his breathing is improving No c/o CP or palpitations Objective: I&O/Vital Signs 08/08/21 08/08/21 08/08/21 08/08/21 21:00 21:43 22:00 22:15 Temp 36.2 Pulse 78 70 73 Resp 16 16 B/P (MAP) 136/84 133/82 Pulse Ox 91 92 90 O2 Delivery Vapotherm Vapotherm NIV Bilevel O2 Flow Rate 35.00 35.00 70.00 70.00 70.00 FiO2 60 08/08/21 08/08/21 08/08/21 08/08/21 22:15 22:16 23:00 23:36 Pulse 74 80 Resp 17 17 B/P (MAP) 135/103 Pulse Ox 91 100 94 96 O2 Delivery Vapotherm NIV Bilevel NIV Bilevel O2 Flow Rate 35.00 70.00 70.00 FiO2 70 70 08/09/21 08/09/21 08/09/21 08/09/21 00:00 00:00 01:00 01:00 Temp 36.5 Pulse 53 63 63 Resp 9 13 B/P (MAP) 121/98 128/100 Pulse Ox 96 95 O2 Delivery NIV Bilevel NIV Bilevel NIV Bilevel O2 Flow Rate 70.00 70.00 70.00 08/09/21 08/09/21 08/09/21 08/09/21 02:02 02:56 03:00 03:49 Pulse 67 52 72 Resp 20 17 16 B/P (MAP) 152/90 149/85 Pulse Ox 94 97 96 96 O2 Delivery NIV Bilevel NIV Bilevel NIV Bilevel O2 Flow Rate 70.00 70.00 70.00 FiO2 70 08/09/21 08/09/21 08/09/21 08/09/21 04:00 04:00 05:00 06:15 Temp 36.6 Pulse 64 66 68 Resp 15 17 20 B/P (MAP) 133/97 137/89 Pulse Ox 94 95 92 O2 Delivery NIV Bilevel NIV Bilevel Vapotherm O2 Flow Rate 70.00 70.00 35.00 70.00 08/09/21 08/09/21 08/09/21 08/09/21 07:00 07:36 08:00 08:00 Temp 36.7 Pulse 80 Pulse Ox 93 94 O2 Delivery Vapotherm NIV Bilevel O2 Flow Rate 35.00 35.00 FiO2 70 70 08/09/21 00:00 Intake Total 800 ml Output Total 375 ml Balance 425 ml Constitutional: AAO x 3, well-developed, well-nourished Respiratory: rhonchi, other (coarse breath sounds - improved from yesterday) Cardiovascular: irregularly irregular, S1 and S2, systolic murmur Gastrointestional: soft, audible bowel sounds Extremities: No clubbing, No cyanosis, No significant edema Neurologic/Psychiatric: oriented x 3, grossly intact (moves all extremities) Skin: No rash on exposed areas, No ulcerations on exposed areas Results/Procedures: Labs Laboratory Tests 08/09/21 05:36: White Blood Count 11.1H, Red Blood Count 6.04H, Hemoglobin 17.4, Hematocrit 53, Mean Corpuscular Volume 88, Mean Corpuscular Hemoglobin 29, Mean Corpuscular Hemoglobin Concent 33, Red Cell Distribution Width 14.7H, Platelet Count 319, Mean Platelet Volume 9.3, Immature Granulocyte % (Auto) 1, Neutrophils (%) (Auto) 90H, Lymphocytes (%) (Auto) 4L, Monocytes (%) (Auto) 5, Eosinophils (%) (Auto) 0, Basophils (%) (Auto) 0, Neutrophils # (Auto) 10.0H, Lymphocytes # (Auto) 0.4L, Monocytes # (Auto) 0.6, Eosinophils # (Auto) 0.0, Basophils # (Auto) 0.0, Immature Granulocyte # (Auto) 0.1, D-Dimer 0.80H, Sodium Level 135, Potassium Level 4.3, Chloride Level 100, Carbon Dioxide Level 25, Anion Gap 10, Blood Urea Nitrogen 30H, Creatinine 0.86, Estimat Glomerular Filtration Rate 87, BUN/Creatinine Ratio 35, Glucose Level 115H, Calcium Level 8.4L, Phosphorus Level 3.1, Magnesium Level 2.3 Laboratory Tests 08/08/21 04:10 08/08/21 05:45 08/09/21 05:36 A/P: Assessment: COVID-19 pneumonia and hypoxia at presentation on 08/02/21 - improving A Fib, probably chronic persistent - rate under fair control - OAC held due to david hematuria (managed by the Hospitalist maría) resumed on 08/05/21 Hypertension - improved Acute renal insuff at presentation, likely due to volume depletion, resolved with hydration Plan: * Continue current medication regimen * Monitor labs LEEANNA ROBERT Aug 09, 2021 08:58
--- NOTE | 2021-08-09 09:33 | Physical Therapy Daily Note ---
PT Daily Note-Current Subjective Patient lying supine in bed upon PT arrival, agreeable to treatment. Patient currently reports 0/10 pain. Mental Status Patient Orientation: Person, Place, Time, Situation Attachments: Oxygen, [place] Catheter, IV Transfers SCALE: Activities may be completed with or without assistive devices. 7-Pchgbgsjqa-xuiajjo completes the activity by him/herself with no assistance from a helper. 5-Set-up or Clean-up Assistance-helper sets up or cleans up; patient completes activity. [place] assists only prior to or following the activity. 4-Supervision or Touching Assistance-helper provides verbal cues and/or lizzy frantz/steadying and/or contact guard assistance as patient completes activity. Assistance may be provided throughout the activity or intermittently. 3-Partial/Moderate Assistance-helper does LESS THAN HALF the effort. [place] lifts, holds or supports trunk or limbs, but provides less than half the effort. 2-Substantial/Maximal Assistance-helper does MORE THAN HALF the effort. [place] lifts or holds trunk or limbs and provides more than half the effort. 4-Hhhmevuwf-anrugw does ALL the effort. Patient does none of the effort to complete the activity. Or, the assistance of 2 or more helpers is required for the patient to complete the activity. If activity was not attempted, code reason: 7-Patient Refused. 9-Not Applicable-not attempted and the patient did not perform the activity before the current illness, exacerbation or injury. 10-Not Attempted due to Environmental Limitations-(lack of equipment, weather restraints, etc.). 88-Not Attempted due to Medical Conditions or Safety Concerns. Roll Left & Right (QC): 4 Sit to Lying (QC): 4 Lying to Sitting/Side of Bed(Q: 4 Sit to Stand (QC): 3 Chair/Qos-sg-Neyvh Xfer(QC): 4 Gait Training Does the Patient Walk?: Yes Distance: 4 feet Walk 10 feet (QC): 88 Gait Assistive Device: FWW Exercises Supine Ex: Ankle pumps, Quad Set, Glut sets, Heel Slides, Knee to chest, Short Arc Quads, Straight leg raise, Hip abd/add Supine Reps: 20 Assessment Current Status: Fair Progress Patient tolerated treatment fair and requires frequent rest breaks due to decrease in O2 sats. Patient performed LE therapeutic exercise as listed above in supine and then sitting. He performs all observed bed mobility and transfers with min A/CGA. Patient ambulates 4 feet to the chair with FWW, with min A and verbal cues for safety, progression. Patient performs remaining exercises in chair. Patient in chair post treatment with all needs met, nursing notified, call light in reach. PT Balloon Pilot Goals Balloon Pilot Goals PT Retirement Goals Time Frame: Aug 15, 2021 Roll Left & Right (QC): 6 Sit to Lying (QC): 6 Lying-Sitting on Side/Bed(QC): 6 Sit to Stand (QC): 6 Chair/Hji-ka-Xypsm Xfer(QC): 6 Walk 10 feet (QC): 6 Walk 50ft with 2 Turns (QC): 6 PT Plan Treatment/Plan Treatment Plan: Continue Plan of Care Treatment Plan: Bed Mobility, Education, Functional Activity Holly, Functional Strength, Gait, Safety, Therapeutic Exercise, Transfers Treatment Duration: Aug 15, 2021 Frequency: 6 times per week Estimated Hrs Per Day: .25 hour per day Patient and/or Family Agrees t: Yes Safety Risks/Education Patient Education: Transfer Techniques, Safety Issues Teaching Recipient: Patient Teaching Methods: Demonstration, Discussion Response to Teaching: Verbalize Understanding, Return Demonstration Time/GCodes Time In: 0855 Time Out: 920 Total Billed Treatment Time: 25 Total Billed Treatment Visit, MERCEDES, MIHIR Adhikari PT Aug 09, 2021 09:33
--- NOTE | 2021-08-09 09:44 | Tele-ICU Progress Note ---
Subjective Date Seen by a Provider: Aug 09, 2021 Time Seen by a Provider: 09:39 Subjective/Events-last exam Patient with Covid pneumonia and acute hypoxic respiratory failure requiring Vapotherm. Today he is tolerating Vapotherm at 35 L and 70% oxygen. He has a atrial flutter which is rate controlled. At rest he is not in any acute distress. Available chart/vitals/labs and images reviewed. Video assessment done using telemetry ICU camera. Physical examination per RN. Review of Systems ROS PER ATTENDING Sepsis Event Evaluation Height, Weight, BMI Height: '" Weight: lbs. oz. kg; 25.00 BMI Method: Exam Exam Patient acknowledged, consented, and participated in this virtual visit which was conducted using real time audio/video Vital Signs Date Time Temp Pulse Resp B/P (MAP) Pulse Ox O2 Delivery O2 Flow Rate FiO2 08/09/21 09:00 73 19 138/80 94 Vapotherm 35.00 70.00 08/09/21 08:00 81 20 155/96 92 Vapotherm 35.00 70.00 08/09/21 08:00 94 NIV Bilevel 35.00 70 08/09/21 08:00 36.7 08/09/21 07:36 93 Vapotherm 35.00 70 08/09/21 07:00 76 23 91 Vapotherm 35.00 70.00 08/09/21 07:00 80 08/09/21 06:15 68 20 92 Vapotherm 35.00 70.00 08/09/21 05:00 66 17 137/89 95 NIV Bilevel 70.00 08/09/21 04:00 36.6 08/09/21 04:00 64 15 133/97 94 NIV Bilevel 70.00 08/09/21 03:49 96 NIV Bilevel 70 08/09/21 03:00 72 16 149/85 96 NIV Bilevel 70.00 08/09/21 02:56 52 17 97 70.00 08/09/21 02:02 67 20 152/90 94 NIV Bilevel 70.00 08/09/21 01:00 63 08/09/21 01:00 63 13 128/100 95 NIV Bilevel 70.00 08/09/21 00:00 36.5 NIV Bilevel 70.00 08/09/21 00:00 53 9 121/98 96 NIV Bilevel 70.00 08/08/21 23:36 96 NIV Bilevel 70 08/08/21 23:00 80 17 135/103 94 NIV Bilevel 70.00 08/08/21 22:16 74 17 100 70.00 08/08/21 22:15 91 Vapotherm 35.00 70 08/08/21 22:15 NIV Bilevel 70.00 08/08/21 22:00 73 16 133/82 90 Vapotherm 35.00 70.00 08/08/21 21:43 36.2 70 92 60 08/08/21 21:00 78 16 136/84 91 Vapotherm 35.00 70.00 08/08/21 20:00 71 34 125/96 95 Vapotherm 35.00 70.00 08/08/21 20:00 95 Vapotherm 35.00 70 08/08/21 20:00 36.3 08/08/21 19:07 91 Vapotherm 35.00 70 08/08/21 19:00 61 21 127/90 91 Vapotherm 35.00 70.00 08/08/21 19:00 61 08/08/21 16:26 Vapotherm 35.00 65.00 08/08/21 16:00 70 21 131/79 92 Vapotherm 30.00 60.00 08/08/21 16:00 92 Vapotherm 35.00 65 08/08/21 16:00 36.2 08/08/21 15:46 94 Vapotherm 30.00 80 08/08/21 15:00 58 22 125/74 93 Vapotherm 30.00 60.00 08/08/21 14:00 65 22 125/69 86 Vapotherm 30.00 60.00 08/08/21 13:00 57 12 118/91 89 Vapotherm 30.00 60.00 08/08/21 13:00 Vapotherm 30.00 60.00 08/08/21 13:00 71 08/08/21 12:00 65 22 128/84 89 Vapotherm 30.00 60.00 08/08/21 12:00 93 Vapotherm 30.00 60 08/08/21 11:51 36.7 08/08/21 11:00 70 21 108/74 92 Vapotherm 30.00 60.00 08/08/21 10:59 Vapotherm 30.00 60.00 08/08/21 10:55 97 Vapotherm 30.00 65 08/08/21 10:32 Vapotherm 30.00 65.00 08/08/21 10:00 84 15 145/93 94 Vapotherm 40.00 85.00 I & O 08/09/21 07:00 Intake Total 1000 ml Output Total 875 ml Balance 125 ml Height & Weight Height: '" Weight: lbs. oz. kg; 25.00 BMI Method: General Appearance: No Apparent Distress, WD/WN, Chronically ill HEENT: PERRL/EOMI; No Moist Mucous Membranes Neck: Full Range of Motion, Normal Inspection Respiratory: Lungs Clear, Normal Breath Sounds, No Respiratory Distress Cardiovascular: Regular Rate, Rhythm, No Edema, No Murmur Capillary Refill: Less Than 3 Seconds Extremity: Normal Inspection, Non Tender, No Pedal Edema Neurologic/Psychiatric: Alert, Oriented x3, Normal Mood/Affect Skin: Normal Color, Warm/Dry Other comments PE PER ATTENDING Results Lab Laboratory Tests 08/08/21 04:10 08/08/21 05:45 08/09/21 05:36 Meds REVIEWED Radiology NAME: ANNA AGUILAR [facility] REC#: [id number] PT STATUS: ADM IN : 1950 PHYSICIAN: DAMIÁN JONES MD ADMIT DATE: 08/02/21/ICU Signed Date of Exam:08/06/21 CHEST 1 VIEW, AP/PA ONLY Portable erect AP chest at 404 hours. INDICATION: Respiratory distress. FINDINGS: The heart is enlarged but does seem less prominent than noted on the prior exam of 08/02/2021. However, the alveolar/interstitial infiltrates involving both lung seen previously have increased considerably. The right lung is more severely affected. This appearance does suggest worsening pneumonia/atelectasis and/or pulmonary edema. There is no significant pleural effusion defied but there may be some fluid in the left lung base. The mediastinum is not widened. The osseous structures are intact. IMPRESSION: The appearance of the chest has worsened since the prior study as there is greater involvement of both lungs by alveolar/interstitial pulmonary infiltrates. This may be related to pneumonia/atelectasis, or pulmonary edema or a combination of all three. Dictated by: Dictated on workstation # [id number] Dict: 08/06/21 0659 Trans: 08/06/21 0814 [id number] Interpreted by: LOW HUDSON MD Electronically signed by: LOW HUDSON MD 08/06/2114 Assessment/Plan Assessment/Plan 1. Covid19 pneumonia 2. Acute hypoxic respiratory failure requiring Vapotherm. 3. Atrial flutter rate controlled on oral anticoagulant therapy 4. Hypercoagulable state. Patient already on Eliquis 5. Hyperglycemia secondary to steroids follow-up with insulin sliding scale coverage Recommendations 1. Continue dexamethasone and sliding scale coverage. 2. Continue Vapotherm and wean FiO2 as tolerated. 3. Atrial flutter rate management per cardiology service 4. Continue DVT prophylaxis and stroke prophylaxis with Eliquis. 5. Video visit made and discussed with the patient and RN. Critical Care: Critically Ill Patient Time spent with patient (mins): 25 DONNIE LANDEROS MD Aug 09, 2021 09:44
[2021-08-09] MEDS ORDERED: polyethylene glycoL POWDER 17 GM (MIRALAX) PACK PO PRN (10:45)
--- NOTE | 2021-08-09 13:08 | Progress Note - Cardiology ---
Cardiology SOAP Progress Note Subjective: Shortness of breath better No new symptoms Objective: I&O/Vital Signs 08/09/21 08/09/21 08/09/21 08/09/21 02:02 02:56 03:00 03:49 Pulse 67 52 72 Resp 20 17 16 B/P (MAP) 152/90 149/85 Pulse Ox 94 97 96 96 O2 Delivery NIV Bilevel NIV Bilevel NIV Bilevel O2 Flow Rate 70.00 70.00 70.00 FiO2 70 08/09/21 08/09/21 08/09/21 08/09/21 04:00 04:00 05:00 06:15 Temp 36.6 Pulse 64 66 68 Resp 15 17 20 B/P (MAP) 133/97 137/89 Pulse Ox 94 95 92 O2 Delivery NIV Bilevel NIV Bilevel Vapotherm O2 Flow Rate 70.00 70.00 35.00 70.00 08/09/21 08/09/21 08/09/21 08/09/21 07:00 07:00 07:36 08:00 Temp 36.7 Pulse 80 76 Resp 23 B/P (MAP) Pulse Ox 91 93 O2 Delivery Vapotherm Vapotherm O2 Flow Rate 35.00 35.00 70.00 FiO2 70 08/09/21 08/09/21 08/09/21 08/09/21 08:00 08:00 09:00 10:34 Pulse 81 73 Resp 20 19 B/P (MAP) 155/96 138/80 Pulse Ox 94 92 94 93 O2 Delivery NIV Bilevel Vapotherm Vapotherm Vapotherm O2 Flow Rate 35.00 35.00 35.00 30.00 70.00 70.00 FiO2 70 65 08/09/21 08/09/21 11:46 12:58 Temp 36.6 Pulse 57 08/09/21 00:00 Intake Total 800 ml Output Total 375 ml Balance 425 ml Constitutional: AAO x 3, well-developed, well-nourished Respiratory: rhonchi, other (coarse breath sounds - improved from yesterday) Cardiovascular: irregularly irregular, S1 and S2, systolic murmur Gastrointestional: soft, audible bowel sounds Extremities: No clubbing, No cyanosis, No significant edema Neurologic/Psychiatric: oriented x 3, grossly intact (moves all extremities) Skin: No rash on exposed areas, No ulcerations on exposed areas Results/Procedures: Labs Laboratory Tests 08/09/21 05:36: White Blood Count 11.1H, Red Blood Count 6.04H, Hemoglobin 17.4, Hematocrit 53, Mean Corpuscular Volume 88, Mean Corpuscular Hemoglobin 29, Mean Corpuscular Hemoglobin Concent 33, Red Cell Distribution Width 14.7H, Platelet Count 319, Mean Platelet Volume 9.3, Immature Granulocyte % (Auto) 1, Neutrophils (%) (Auto) 90H, Lymphocytes (%) (Auto) 4L, Monocytes (%) (Auto) 5, Eosinophils (%) (Auto) 0, Basophils (%) (Auto) 0, Neutrophils # (Auto) 10.0H, Lymphocytes # (Auto) 0.4L, Monocytes # (Auto) 0.6, Eosinophils # (Auto) 0.0, Basophils # (Auto) 0.0, Immature Granulocyte # (Auto) 0.1, D-Dimer 0.80H, Sodium Level 135, Potassium Level 4.3, Chloride Level 100, Carbon Dioxide Level 25, Anion Gap 10, Blood Urea Nitrogen 30H, Creatinine 0.86, Estimat Glomerular Filtration Rate 87, BUN/Creatinine Ratio 35, Glucose Level 115H, Calcium Level 8.4L, Phosphorus Level 3.1, Magnesium Level 2.3 Laboratory Tests 08/08/21 04:10 08/08/21 05:45 08/09/21 05:36 A/P: Assessment: COVID-19 pneumonia and hypoxia at presentation on 08/02/21 - improving A Fib, probably chronic persistent - rate under fair control - OAC held due to david hematuria (managed by the Hospitalist maría) resumed on 08/05/21 Hypertension - improved Acute renal insuff at presentation, likely due to volume depletion, resolved with hydration Plan: * Continue current medication regimen * Monitor labs Note: Roseann Luna (BARREL ROLLER) and I saw the patient collaboratively. My Assessment and Recs are noted above DENIA PARMAR MD [facility]S Aug 09, 2021 13:08
[2021-08-09] MEDS: DOCUSATE SODIUM 100 MG (COLACE) CAP PO SCH ×2 (13:24→19:46)
[2021-08-09] MEDS: SENNA W/DOCUSATE (SENOKOT S) TABLET PO SCH ×2 (13:24→19:46)
--- NOTE | 2021-08-09 17:36 | Progress Note - Hospitalist ---
Subjective HPI/CC On Admission Date Seen by Provider: Aug 09, 2021 Time Seen by Provider: 10:25 Emmanuel Sanches is a 70 year old male with PMH HTN, AFib, who presented with shortness of breath. He has also had a cough. He denies fevers and chills. He has been having diarrhea. He denies nausea and vomiting. He is not vaccinated against COVID-19. Subjective/Events-last exam He is doing about the same. He is sitting in his bedside chair. He wore the BiPAP last night. He reports it to be uncomfortable but he was able to get some sleep with it on. Objective Exam Vital Signs Vital Signs Date Time Temp Pulse Resp B/P (MAP) Pulse Ox O2 Delivery O2 Flow Rate FiO2 08/09/21 16:51 Vapotherm 35.00 85.00 08/09/21 16:33 36.5 08/09/21 16:00 64 18 122/86 90 08/09/21 15:36 65 Capillary Refill : Less Than 3 Seconds General Appearance: No Apparent Distress, WD/WN Respiratory: Lungs Clear, Normal Breath Sounds, No Respiratory Distress Cardiovascular: Regular Rate, Rhythm, No Edema, No Murmur Gastrointestinal: Normal Bowel Sounds, Non Tender, Soft Extremity: Normal Inspection, Non Tender, No Pedal Edema Neurologic/Psychiatric: Alert, Oriented x3, No Motor/Sensory Deficits, Normal Mood/Affect Skin: Normal Color, Warm/Dry Results/Procedures Lab Laboratory Tests 08/09/21 05:36 Patient resulted labs reviewed. Imaging: Reviewed Imaging Report Assessment/Plan Assessment and Plan Assess & Plan/Chief Complaint Acute respiratory failure due to COVID-19 Elevated d-dimer Unvaccinated Oxygen requirement stable, on Vapotherm Continue Decadron s/p Actemra 08/05 TeleICU following Procalcitonin within normal limits, antibiotics not indicated Already receiving therapeutic anticoagulation with Eliquis AFib with RVR Hypertension Cardiology following BP remains elevated Continue Cardizem Continue Eliquis Continue Losartan and Metoprolol DVT prophylaxis: already receiving therapeutic anticoagulation Lymphopenia associated with COVID-19 resolved MARITA, resolved Hematuria, resovled Critical Care Critically Ill Patient Diagnosis/Problems Diagnosis/Problems (1) Acute respiratory failure with hypoxia Status: Acute (2) COVID-19 Status: Acute (3) Elevated d-dimer Status: Acute (4) Lymphopenia associated with COVID-19 Status: Acute (5) Atrial fibrillation with RVR Status: Acute (6) MARITA (acute kidney injury) Status: Acute (7) HTN (hypertension) Status: Acute Qualifiers: Hypertension type: primary hypertension Qualified Codes: I10 - Essential (primary) hypertension TUCKER GALLEGOS MD Aug 09, 2021 17:36
--- NOTE | 2021-08-09 18:14 | Diagnostic Imaging Report ---
HISTORY: PICC tip placement. TECHNIQUE: Frontal view of the chest. COMPARISON: 08/06/2021. FINDINGS: The tip of the right PICC line projects over the low SVC. Airspace opacities are seen, bilaterally. Aeration appears stable since the prior study. The cardiac silhouette is stable in size. There is no pleural effusion or pneumothorax. IMPRESSION: 1. The tip of the right PICC projects over the low SVC. 2. Bilateral airspace opacities, stable since the prior study. Dictated by: Dictated on workstation # [id number]
[2021-08-09 21:43] VITALS: BP 135/81
[2021-08-10] MEDS: hydrALAZINE (APESOLINE) 20 MG/ML VIAL IV PRN (00:51)
[2021-08-10] MEDS: RT-ALBUTEROL HFA 8.5 GM INHALER IH SCH ×3 (02:10→10:32)
[2021-08-10 03:03] LABS: BASOPHILS % (AUTO) 0 % (0-10); EOSINOPHILS % (AUTO) 0 % (0-10); HEMATOCRIT 53 % (40-54); HEMOGLOBIN 17.1 g/dL (13.3-17.7); LYMPHOCYTES # (AUTO) 0.3 10^3/uL (1.0-4.0); LYMPHOCYTES % (AUTO) 2 % (12-44); MEAN CORPUSCULAR HEMOGLOBIN 29 pg (25-34); MEAN CORPUSCULAR HGB CONC 33 g/dL (32-36); MEAN CORPUSCULAR VOLUME 89 fL (80-99); MEAN PLATELET VOLUME 9.7 fL (9.0-12.2); MONOCYTES # (AUTO) 0.3 10^3/uL (0.0-1.0); MONOCYTES % (AUTO) 2 % (0-12); NEUTROPHILS # (AUTO) 14.7 10^3/uL (1.8-7.8); NEUTROPHILS % (AUTO) 95 % (42-75); PLATELET COUNT 364 10^3/uL (130-400); WHITE BLOOD COUNT 15.4 10^3/uL (4.3-11.0)
[2021-08-10 03:09] LABS: POTASSIUM 3.8 MMOL/L (3.6-5.0)
[2021-08-10 03:10] LABS: CALCIUM 8.4 MG/DL (8.5-10.1)
[2021-08-10 03:14] LABS: PHOSPHORUS 2.7 MG/DL (2.3-4.7)
[2021-08-10 03:15] LABS: CREATININE SERUM 0.83 MG/DL (0.60-1.30)
[2021-08-10 03:38] LABS: LYMPHOCYTES % (MANUAL) 1 %; MONOCYTES % (MANUAL) 4 %; NEUTROPHILS % (MANUAL) 95 %
[2021-08-10 03:39] LABS: RBC MORPH NORMAL
[2021-08-10] MEDS: KCL 20 MEQ TAB (K-DUR) PO SCH (04:53)
[2021-08-10] MEDS: MAGNESIUM 1 GM/100 ML IVPB 100 ML IV SCH (04:53)
[2021-08-10] MEDS: POTASSIUM CL 10MEQ/50ML IVPB 50 ML IV SCH (04:53)
[2021-08-10] MEDS: APIXABAN 5 MG (ELIQUIS) TABLET PO SCH (09:03)
[2021-08-10] MEDS: DOCUSATE SODIUM 100 MG (COLACE) CAP PO SCH (09:03)
[2021-08-10] MEDS: meTOproloL SUCCINATE 50 MG (TOPROL XL) TAB PO SCH (09:03)
[2021-08-10] MEDS: SENNA W/DOCUSATE (SENOKOT S) TABLET PO SCH (09:04)
[2021-08-10] MEDS: LOSARTAN 50 MG (COZAAR) TAB PO SCH (09:04)
[2021-08-10] MEDS: NYSTATIN CREAM (MYCOSTATIN) 30 GM TUBE TP SCH (09:04)
--- NOTE | 2021-08-10 09:33 | Cardiology Progress Note ---
Subjective Date Seen by Provider: Aug 10, 2021 Time Seen by Provider: 09:31 Subjective/Events-last exam Patient is laying down in bed, feeling better, still on Vapotherm Review of Systems General: No Chills, No Night Sweats; Fatigue; No Malaise, No Appetite, No Other HEENT: No Head Aches, No Visual Changes, No Eye Pain, No Ear Pain, No Dysphasia, No Sinus Congestion, No Post Nasal Drip, No Sore Throat, No Other Pulmonary: Dyspnea, Cough; No Pleuritic Chest Pain, No Other Cardiovascular: No: Chest Pain, Palpitations, Orthopnea, Paroxysmal Noc. Dyspnea, Edema, Lt Headedness, Other Objective-Cardiology Exam Last Set of Vital Signs Vital Signs 08/10/21 08/10/21 08/10/21 07:18 08:28 09:00 Temp 37.4 Pulse 94 Resp 21 B/P (MAP) 135/91 Pulse Ox 96 O2 Delivery Vapotherm O2 Flow Rate 35.00 80.00 FiO2 86 I&O Intake and Output 08/10/21 00:00 Intake Total 2300 ml Output Total 1750 ml Balance 550 ml Intake Oral 1300 ml IV Total 1000 ml Output Urine Total 1750 ml General: Alert, Oriented X3, Cooperative HEENT: Atraumatic, PERRLA Neck: Supple, No JVD, No Thyromegaly Lungs: Clear to Auscultation, Normal Air Movement Heart: Normal S1, Normal S2, No Murmurs, Other (Irregular) Abdomen: Normal Bowel Sounds, Soft, No Tenderness, No Hepatosplenomegaly, No Masses Extremities: No Clubbing, No Cyanosis, No Edema, Normal Pulses, No Tenderness/Swelling Skin: No Rashes, No Breakdown, No Significant Lesion Neuro: Normal Speech, Normal Tone, Sensation Intact Psych/Mental Status: Mental Status NL, Mood NL Results Lab Laboratory Tests 08/10/21 02:50 A/P-Cardiology Admission Diagnosis Acute respiratory failure COVID-19 pneumonia Chronic atrial fibrillation Hypertension Assessment/Plan Acute respiratory failure with COVID-19 pneumonia, maintained on Vapotherm, managed by medical team Persistent atrial fibrillation, rate is controlled. Maintained on Cardizem 360 mg and Toprol-XL 50 mg in addition to Eliquis 5 mg twice daily. Tolerating medication well. Continue to monitor Status post hematuria, improved. Continue to monitor Hypertension, blood pressure is controlled. Monitor blood pressure Acute renal insufficiency, improved. Continue to monitor RODRIGUEZ OSBORNE MD Aug 10, 2021 09:33
[2021-08-10] MEDS ORDERED: APIX5TAB PO (10:38)
[2021-08-10] MEDS ORDERED: DEXA6TAB6 PO (10:38)
[2021-08-10] MEDS ORDERED: METO50TA7 PO (10:38)
[2021-08-10] MEDS ORDERED: LOSA50TA63 PO (10:38)
[2021-08-10] MEDS ORDERED: DILT180C85 PO (10:38)
--- NOTE | 2021-08-10 10:58 | Tele-ICU Progress Note ---
Subjective Date Seen by a Provider: Aug 10, 2021 Time Seen by a Provider: 10:58 Subjective/Events-last exam Patient today is resting comfortably on Vapotherm 30 L and 80%. His heart rate is controlled and he is on Eliquis. He is going to be transferred to [facility] today apparently for RN. Video visit made and discussed with the patient assessment is done via telemetry ICU camera. Review of Systems ROS PER ATTENDING Sepsis Event Evaluation Height, Weight, BMI Height: '" Weight: lbs. oz. kg; 25.00 BMI Method: Exam Exam Patient acknowledged, consented, and participated in this virtual visit which was conducted using real time audio/video Vital Signs Date Time Temp Pulse Resp B/P (MAP) Pulse Ox O2 Delivery O2 Flow Rate FiO2 08/10/21 10:32 96 Vapotherm 30.00 80 08/10/21 10:00 94 28 132/83 91 Vapotherm 35.00 80.00 08/10/21 09:00 94 21 135/91 96 Vapotherm 35.00 80.00 08/10/21 08:28 37.4 08/10/21 08:00 94 Vapotherm 30.00 80 08/10/21 08:00 87 14 135/91 88 Vapotherm 35.00 80.00 08/10/21 07:18 88 Vapotherm 30.00 86 08/10/21 07:00 79 08/10/21 07:00 82 11 144/107 91 Vapotherm 35.00 80.00 08/10/21 06:00 81 22 145/122 96 Vapotherm 35.00 80.00 08/10/21 05:00 84 28 148/93 90 Vapotherm 35.00 80.00 08/10/21 04:00 96 Vapotherm 50 08/10/21 04:00 36.0 08/10/21 04:00 86 18 162/96 90 Vapotherm 35.00 80.00 08/10/21 03:00 89 19 146/96 91 Vapotherm 35.00 80.00 08/10/21 02:10 90 Vapotherm 30.00 80 08/10/21 02:00 74 16 149/86 91 Vapotherm 35.00 80.00 08/10/21 01:00 72 08/10/21 01:00 75 20 138/95 92 Vapotherm 35.00 80.00 08/10/21 00:50 Vapotherm 35.00 80.00 08/10/21 00:00 73 18 143/111 92 Vapotherm 35.00 85.00 08/10/21 00:00 36.2 NIV Bilevel 50.00 08/09/21 23:55 96 NIV Bilevel 70 08/09/21 23:00 64 14 135/103 94 Vapotherm 35.00 85.00 08/09/21 22:00 66 16 135/87 92 Vapotherm 35.00 85.00 08/09/21 21:43 69 21 94 50.00 08/09/21 21:38 90 Vapotherm 35.00 80 08/09/21 21:00 62 16 135/81 91 Vapotherm 35.00 85.00 08/09/21 20:06 36.4 08/09/21 20:00 79 26 151/97 91 Vapotherm 35.00 85.00 08/09/21 20:00 94 Vapotherm 30.00 85 08/09/21 19:00 65 16 139/87 94 Vapotherm 35.00 85.00 08/09/21 19:00 71 08/09/21 18:09 97 Vapotherm 35.00 85 08/09/21 16:51 Vapotherm 35.00 85.00 08/09/21 16:33 36.5 08/09/21 16:00 64 18 122/86 90 Vapotherm 35.00 70.00 08/09/21 15:36 94 NIV Bilevel 30.00 65 08/09/21 15:00 53 16 118/87 89 Vapotherm 35.00 70.00 08/09/21 14:00 69 35 121/111 95 Vapotherm 35.00 70.00 08/09/21 13:46 93 Vapotherm 30.00 65 08/09/21 13:00 55 14 110/70 96 Vapotherm 35.00 70.00 08/09/21 12:58 57 08/09/21 12:00 93 NIV Bilevel 30.00 60 08/09/21 12:00 78 19 131/75 92 Vapotherm 35.00 70.00 08/09/21 11:46 36.6 08/09/21 11:00 75 18 101/76 96 Vapotherm 35.00 70.00 I & O 08/10/21 07:00 Intake Total 2500 ml Output Total 2400 ml Balance 100 ml Height & Weight Height: '" Weight: lbs. oz. kg; 25.00 BMI Method: General Appearance: No Apparent Distress, WD/WN HEENT: PERRL/EOMI; No Moist Mucous Membranes Neck: Full Range of Motion, Normal Inspection Respiratory: Lungs Clear, Normal Breath Sounds, No Respiratory Distress Cardiovascular: Regular Rate, Rhythm, No Edema, No Murmur Capillary Refill: Less Than 3 Seconds Extremity: Normal Inspection, Non Tender, No Pedal Edema Neurologic/Psychiatric: Alert, Oriented x3, No Motor/Sensory Deficits, Normal Mood/Affect Skin: Normal Color, Warm/Dry Other comments pe per attending. Results Lab Laboratory Tests 08/09/21 05:36 08/10/21 02:50 Assessment/Plan Assessment/Plan 1. Covid19 pneumonia 2. Acute hypoxic respiratory failure requiring Vapotherm. 3. Atrial flutter rate controlled on oral anticoagulant therapy 4. Hypercoagulable state. Patient already on Eliquis 5. Hyperglycemia secondary to steroids follow-up with insulin sliding scale coverage Recommendations 1. Continue dexamethasone and sliding scale coverage. 2. Continue Vapotherm and wean FiO2 as tolerated. 3. Atrial flutter rate management per cardiology service 4. Continue DVT prophylaxis and stroke prophylaxis with Eliquis. 5. Video visit made and discussed with the patient and RN. 6. ok to transfer patient to LTAC from critical care point of view. Critical Care: Critically Ill Patient Time spent with patient (mins): 25 DONNIE LANDEROS MD Aug 10, 2021 10:58
[2021-08-10] MEDS ORDERED: PANTOPRAZOLE 40 MG (PROTONIX) TAB PO SCH (11:00)
--- NOTE | 2021-08-10 15:19 | Discharge Summary ---
Discharge Summary Hospital Course Was the Problem List Reviewed?: Yes Problems/Dx: (1) Acute respiratory failure with hypoxia Status: Acute (2) COVID-19 Status: Acute (3) Elevated d-dimer Status: Acute (4) Lymphopenia associated with COVID-19 Status: Acute (5) Atrial fibrillation with RVR Status: Acute (6) MARITA (acute kidney injury) Status: Acute (7) HTN (hypertension) Status: Acute Qualifiers: Qualified Codes: I10 - Essential (primary) hypertension Hospital Course Date of Admission: Aug 02, 2021 at 10:50 Admission Diagnosis : Acute respiratory failure due to COVID-19, AFib with RVR Family Physician/Provider: Jose G Avendano MD Date of Discharge: 08/10/21 Discharge Diagnosis: Acute respiratory failure due to COVID-19, AFib with RVR Hospital Course: Emmanuel Sanches is a 71 year old male who was admitted with acute respiratory failure due to COVID-19. He was treated with IV steroids. He continued to worsen and was given Actemra. He required Vapotherm for supplemental high-flow oxygen. His course was complicated by AFib with RVR. He initially required IV Cardizem. Cardiology was consulted and assisted with his care. He was transitioned to oral Cardizem and Metoprolol. He was continued on Eliquis. He was also debilitated due to his acute illness. He was transferred to [facility] for ongoing high flow oxygen need/weaning and therapy needs. He was discharged in stable but serious condition with guarded prognosis. Labs and Pending Lab Test: Laboratory Tests 08/10/21 02:50: White Blood Count 15.4H, Red Blood Count 5.91H, Hemoglobin 17.1, Hematocrit 53, Mean Corpuscular Volume 89, Mean Corpuscular Hemoglobin 29, Mean Corpuscular Hemoglobin Concent 33, Red Cell Distribution Width 14.4, Platelet Count 364, Mean Platelet Volume 9.7, Immature Granulocyte % (Auto) 1, Neutrophils (%) (Auto) 95H, Lymphocytes (%) (Auto) 2L, Monocytes (%) (Auto) 2, Eosinophils (%) (Auto) 0, Basophils (%) (Auto) 0, Neutrophils # (Auto) 14.7H, Lymphocytes # (Auto) 0.3L, Monocytes # (Auto) 0.3, Eosinophils # (Auto) 0.0, Basophils # (Auto) 0.0, Immature Granulocyte # (Auto) 0.1, Neutrophils % (Manual) 95, Lymphocytes % (Manual) 1, Monocytes % (Manual) 4, Blood Morphology Comment NORMAL, Sodium Level 138, Potassium Level 3.8, Chloride Level 103, Carbon Dioxide Level 24, Anion Gap 11, Blood Urea Nitrogen 25H, Creatinine 0.83, Estimat Glomerular Filtration Rate 91, BUN/Creatinine Ratio 30, Glucose Level 115H, Calcium Level 8.4L, Phosphorus Level 2.7, Magnesium Level 2.0, Procalcitonin 0.04 Home Meds Active Decadron (Dexamethasone) 6 Mg Tablet 6 Mg PO DAILY 5 Days Losartan Potassium 50 Mg Tablet 100 Mg PO DAILY 30 Days Diltiazem 24Hr ER (Diltiazem HCl) 180 Mg Cap.er.24h 360 Mg PO DAILY@0900 30 Days Metoprolol Succinate 50 Mg Tab.er.24h 50 Mg PO DAILY 30 Days Eliquis (Apixaban) 5 Mg Tablet 5 Mg PO BID 30 Days Reported Aspirin EC (Aspirin) 325 Mg Tablet.dr 325 Mg PO DAILY Assessment/Pt Instructions See instructions. Discharged to [facility]. Discharge Planning: >30 minutes discharge planning Discharge Instructions Discharge Diet: No Restrictions Activity as Tolerated: Yes Consultations Cardiology, TeleICU Discharge Physical Examination Vital Signs Vital Signs Date Time Temp Pulse Resp B/P (MAP) Pulse Ox O2 Delivery O2 Flow Rate FiO2 08/10/21 12:20 37.1 08/10/21 12:00 93 Vapotherm 30.00 80 08/10/21 11:00 98 20 127/88 General Appearance: No Apparent Distress, WD/WN Respiratory: Lungs Clear, Normal Breath Sounds, No Respiratory Distress, Other (wearing Vapotherm) Cardiovascular: No Edema, No Murmur, Irregularly Irregular Gastrointestinal: Normal Bowel Sounds, Non Tender, Soft Extremity: Normal Inspection, Non Tender, No Pedal Edema Skin: Normal Color, Warm/Dry Neurologic/Psychiatric: Alert, Oriented x3, Normal Mood/Affect, Motor Weakness Allergies: Coded Allergies: No Known Drug Allergies (Unverified , 08/02/21) Copy Copies To 1: JOSE G AVENDANO MD Discharge Summary Date of Admission Aug 02, 2021 at 10:50 Date of Discharge Aug 10, 2021 at 12:25 Discharge Date: Aug 10, 2021 Discharge Time: 12:25 Admission Diagnosis Atrial fibrillation with rapid ventricular response, acute respiratory failure due to COVID-19 Consults/Procedures Consulations Cardiology, TeleICU Discharge Diagnosis Acute respiratory failure due to COVID-19 Elevated d-dimer Unvaccinated Oxygen requirement stable, on Vapotherm Continue Decadron s/p Actemra 08/05 TeleICU following Procalcitonin within normal limits, antibiotics not indicated Already receiving therapeutic anticoagulation with Eliquis AFib with RVR Hypertension Cardiology following BP remains elevated Continue Cardizem Continue Eliquis Continue Losartan and Metoprolol DVT prophylaxis: already receiving therapeutic anticoagulation Lymphopenia associated with COVID-19 resolved MARITA, resolved Hematuria, resovled (1) Acute respiratory failure with hypoxia Status: Acute (2) COVID-19 Status: Acute (3) Elevated d-dimer Status: Acute (4) Lymphopenia associated with COVID-19 Status: Acute (5) Atrial fibrillation with RVR Status: Acute (6) MARITA (acute kidney injury) Status: Acute (7) HTN (hypertension) Status: Acute Qualifiers: Qualified Codes: I10 - Essential (primary) hypertension TUCKER GALLEGOS MD Aug 10, 2021 15:16
== END 2021-08-10 12:25 | DRG 177 ==
LOC: EDUNIT# 03:42 → ER 03:49 → CSD 05:33 → OBSVTOIN 10:50 → CSD 08-05 09:23 → ICU 08-05 13:23
PROVIDERS: ADMIT Internal Medicine; ATTEND Internal Medicine
PROC: 8E0ZXY6 Isolation (ICD-10-PCS; 2021-08-02)
PROC: XW033H5 Introduction of Tocilizumab into Peripheral Vein, Percutaneous Approach, New Technology Group 5 (ICD-10-PCS; principal; 2021-08-05)
PROC: 5A0955A Assistance with Respiratory Ventilation, Greater than 96 Consecutive Hours, High Flow/Velocity Cannula (ICD-10-PCS; 2021-08-05)
PROC: 5A09357 Assistance with Respiratory Ventilation, Less than 24 Consecutive Hours, Continuous Positive Airway Pressure (ICD-10-PCS; 2021-08-08)
DX: U07.1 COVID-19 (principal); J12.82 Pneumonia due to coronavirus disease 2019; J80 Acute respiratory distress syndrome; N17.9 Acute kidney failure, unspecified; D68.59 Other primary thrombophilia; I48.19 Other persistent atrial fibrillation; I48.92 Unspecified atrial flutter; E87.2 Acidosis; D75.1 Secondary polycythemia; I10 Essential (primary) hypertension; D72.810 Lymphocytopenia; R31.0 Gross hematuria; R73.9 Hyperglycemia, unspecified; T38.0X5A Adverse effect of glucocorticoids and synthetic analogues, initial encounter; Z79.82 Long term (current) use of aspirin; Z79.899 Other long term (current) drug therapy
CPT/HCPCS: 36415; 36569; 71045; 76937; 80048; 80053; 81000; 82805; 83036; 83735; 83880; 84100; 84145; 84443; 84484; 85007; 85025; 85027; 85379; 86141; 87636; 93005; 94640; 94660; 94664; 94760; 96361; 96365; 96366; 96375